=== PATIENT | female | born 1950 | race Caucasian/White ===

== ENCOUNTER → 2016-08-12 | Outpatient (CLI) | payer OTHER ==
[~2016-08-12] MED LIST: ALBU1AER9 INH; CALCTAB7 PO; CHOL100010 PO; COEN200C4 PO; GLUCTAB7 PO; LOSA100T65 PO; LPT10 PO; METF750T PO; MULT-513 PO; TNR25 PO
--- NOTE | 2016-08-12 14:36 | MAMMOGRAPHY REPORT ---
BILATERAL DIGITAL SCREENING MAMMOGRAM WITH CAD: 08/12/2016 CLINICAL HISTORY: Routine screening. Baseline exam. Routine screening. Patient has no complaints. TECHNIQUE: Bilateral CC, MLO and left XCCL views were obtained. Current study was also evaluated w ith a Computer Aided Detection (CAD) system. COMPARISON: Comparison is made to exams dated: 08/11/2015 mammogram, 08/05/2014 mammogram, 07/21/2013 m ammogram, and 07/07/2013 mammogram - [facility]. BREAST COMPOSITION: The tissue of both breasts is heterogeneously dense, which may obscure small ma sses. FINDINGS: There are scattered stable round benign-appearing microcalcifications in the breasts, and a stable intramammary lymph node in the right upper outer quadrant. No suspicious mass, architectura l distortion or cluster of suspicious microcalcifications is seen. IMPRESSION: ACR BI-RADS CATEGORY 1: NEGATIVE There is no mammographic evidence of malignancy. A 1 year screening mammogram is recommended. The p atient will receive written notification of the results. Approximately 10% of breast cancers are not detected with mammography. A negative mammographic repor t should not delay biopsy if a clinically suggestive mass is present. Gunjan Lehman M.D. ay/:08/12/2016 13:58:34 Dump Worker: Jami CROUCH(Pedrito)(Terrance)(BD), [facility] letter sent: Normal 1/2 BI-RADS Code: ACR BI-RADS Category 1: Negative
== END | disposition home or self-care (01) ==
LOC: C.MAMM 13:32
PROVIDERS: ATTEND Obstetrics & Gynecology
DX: Z12.31 Encounter for screening mammogram for malignant neoplasm of breast (principal)

== ENCOUNTER → 2017-08-13 | Outpatient (CLI) | payer OTHER ==
--- NOTE | 2017-08-13 15:55 | MAMMOGRAPHY REPORT ---
BILATERAL DIGITAL SCREENING MAMMOGRAM TOMOSYNTHESIS WITH CAD: 08/13/2017 CLINICAL HISTORY: Routine screening. Patient has no complaints. TECHNIQUE: Breast tomosynthesis in addition to standard 2D mammography was performed. Current study was also evaluated with a Computer Aided Detection (CAD) system. COMPARISON: Comparison is made to exams dated: 08/12/2016 mammogram, 08/11/2015 mammogram, 08/05/2014 m ammogram, 07/21/2013 mammogram, 07/07/2013 mammogram, and 07/01/2012 mammogram - [facility] nter. BREAST COMPOSITION: The tissue of both breasts is heterogeneously dense, which may obscure small mas ses. FINDINGS: There is a stable intramammary lymph node in the right upper outer quadrant. Scattered bryce ign round microcalcifications. No suspicious mass, architectural distortion or cluster of microcalci fications is seen. IMPRESSION: ACR BI-RADS CATEGORY 1: NEGATIVE There is no mammographic evidence of malignancy. A 1 year screening mammogram is recommended. The pa tient will receive written notification of the results. Approximately 10% of breast cancers are not detected with mammography. A negative mammographic report should not delay biopsy if a clinically suggestive mass is present. Gunjan Lehman M.D. ay/:08/13/2017 14:06:45 Grounds Foreman: Angelique CROUCH(Pedrito)(M), [facility] letter sent: Normal 1/2 BI-RADS Code: ACR BI-RADS Category 1: Negative
== END | disposition home or self-care (01) ==
LOC: C.MAMM 13:22
PROVIDERS: ATTEND Obstetrics & Gynecology
DX: Z12.31 Encounter for screening mammogram for malignant neoplasm of breast (principal)

== ENCOUNTER 2022-07-21 15:56 | Inpatient (IN) ==
[2022-07-21 16:42] LABS: Basophils # (auto) 0.04 K/uL (0-0.2); Basophils % (auto) 0.7 %; Eosinophils # (auto) 0.25 K/uL (0-0.50); Eosinophils % (auto) 4.3 %; Hematocrit (blood only) 41.5 % (37.0-47.0); Hemoglobin 15.3 g/dl (12.0-16.0); Immature Granulocytes # (auto) 0.01 K/uL (0.01-0.20); Immature Granulocytes % (auto) 0.2 %; Lymphocytes # (auto) 1.36 K/uL (1.2-3.4); Lymphocytes % (auto) 23.5 %; Mean Corpuscular Hemoglobin 31.7 pg (25.0-34.0); Mean Corpuscular Hgb Conc 36.9 g/dL (32.0-36.0); Mean Corpuscular Volume 85.9 fL (80.0-100.0); Mean Platelet Volume 11.1 fL (9.4-12.4); Monocytes # (auto) 0.44 K/uL (0.11-0.59); Monocytes % (auto) 7.6 %; Neutrophils # (auto) 3.69 K/uL (1.40-6.50); Neutrophils % (auto) 63.7 %; Platelet Count 188 K/uL (130-400); RDW Coefficient of Variation 13.3 % (11.5-14.5); RDW Standard Deviation 41.3 fL (36.4-46.3); Red Blood Count 4.83 M/uL (4.20-5.40); White Blood Count 5.79 K/ul (4.8-10.8)
[2022-07-21] MEDS ORDERED: SODIUM CHLORIDE 0.9% 1000ML 500 ML IV ONE (16:44)
[2022-07-21] MEDS ORDERED: MoRPHine SULFATE 4 MG/ML 1 ML CARP\\VIAL IV STA ×2 (16:44→19:36)
[2022-07-21] MEDS ORDERED: ONDANSETRON INJ 2 MG/ML 2 ML VIAL IV STA (16:44)
--- NOTE | 2022-07-21 16:44 | Emergency Department Note ---
History of Present Illness General Chief Complaint: Abdominal Pain Stated Complaint: ABDOMINAL PAIN, BACK PAIN Time Seen by Provider: 07/21/22 16:12 History of Present Illness Provider Complaint: abdominal pain Onset (ago): 1 day(s) Pain Consistency: intermittent Location: epigastric Radiation: back Severity: moderate Maximum Pain Intensity: 7 Current Pain Intensity: 7 Quality: + stabbing and + sharp Relieved By: + nothing Exacerbated By: + nothing Context: no foreign travel, no possible food poisoning, no sick contacts, no recent antibiotic use, no recent surgery/procedure or no history of similar episodes Associated Symptoms: no nausea, no vomiting, no fever and no chills Related Data Patient Confirmed : No Home Medications Medication Instructions Recorded Confirmed Type albuterol sulfate 90 mcg/actuation 2 inh inhalation Q6H PRN Shortness 07/21/22 07/21/22 History aerosol inhaler Of Breath aspirin 81 mg tablet,delayed 81 mg PO DAILY 07/21/22 07/21/22 History release cholecalciferol (vitamin D3) 50 50 mcg PO DAILY 07/21/22 07/21/22 History mcg (2,000 unit) capsule (Vitamin D3) coQ10 (ubiquinol) 200 mg capsule 200 mg PO DAILY 07/21/22 07/21/22 History glucosamine sulf dipot 1 cap PO DAILY 07/21/22 07/21/22 History chlr,msm,chond 550 mg-C 30 mg-greta 1 mg capsule (Glucosamine Chondroitin) ibuprofen 200 mg tablet (Advil) 200 mg PO BID 07/21/22 07/21/22 History indapamide 1.25 mg tablet 1.25 mg PO DAILY 07/21/22 07/21/22 History levocetirizine 5 mg tablet (Xyzal) 5 mg PO PM 07/21/22 07/21/22 History losartan 100 mg tablet 100 mg PO HS 07/21/22 07/21/22 History metformin 750 mg tablet,extended 1,500 mg PO DAILY 07/21/22 07/21/22 History release 24 hr pravastatin 20 mg tablet 20 mg PO DAILY 07/21/22 07/21/22 History turmeric root extract 500 mg tablet 500 mg PO DAILY 07/21/22 07/21/22 History Allergies Allergy/AdvReac Type Severity Reaction Status Date / Time erythromycin base Allergy Unknown Unknown Verified 07/21/22 19:15 latex Allergy Unknown CONTACT Verified 07/21/22 19:15 DERMATITIS merthiolate Allergy itchy Uncoded 07/21/22 19:21 Seasonal Allergy sneeze, Uncoded 07/21/22 19:19 itchy eyes, congestion Past Med/Surg History Medical History DM type 2 (diabetes mellitus, type 2) Dyslipidemia HTN (hypertension) BAILEE on CPAP Trochanteric bursitis of left hip Surgical History H/O colectomy History of hysterectomy Family History Mother Hypertension Social History Smoking Status: Never smoker Second Hand Exposure: No; Do You Dip or Chew Tobacco: No; Tobacco Cessation Education Requested by Patient: No Hx Alcohol Use: No Hx Substance Use: No Preferred Language: Telugu Communication Ability: Effective Field Service Rep Required: No Beliefs That Will Affect Care: None Current Living Situation: Alone Other Information That Helps Us Care for You: No Feels Safe at Home: Yes Safety Concerns: Feels Safe At This Time Assistive Devices: CPAP and Glasses Physical Exam Vital Signs: Vital Signs - 24 hr 07/21/22 16:01 07/21/22 16:23 07/21/22 16:23 Temperature 36.6 C 36.7 C Temperature Source Temporal Artery Sc an Oral Pulse Rate 79 77 Pulse Rate [Right Finger] 76 Pulse Rhythm [Righ t Finger] Regular Respiratory Rate 18 18 18 Respiratory Effort / Characteristics Non-Labored Sponta neous Non-Labored Sponta neous Respiratory Depth Normal Normal Respiratory Patter n Regular Regular Blood Pressure 200/98 H Blood Pressure [Ri ght Arm] 137/86 Blood Pressure Lawanda n 132 Blood Pressure Lawanda n [Right Arm] 103 Blood Pressure Pos ition Sitting Blood Pressure Pos ition [Right Arm] Lying Pulse Oximetry 99 97 97 Oxygen Delivery Me thod Room Air Room Air Room Air Sepsis Recent Feve r Within 48 Hours No Sepsis New/Unexpla ined Change in Men gilberto Status N/A Sepsis Action Take n by Nursing No Action Required 07/21/22 18:05 Temperature Temperature Source Pulse Rate Pulse Rate [Right Finger] 90 Pulse Rhythm [Righ t Finger] Regular Respiratory Rate 18 Respiratory Effort / Characteristics Non-Labored Sponta neous Respiratory Depth Normal Respiratory Patter n Regular Blood Pressure Blood Pressure [Ri ght Arm] 185/88 H Blood Pressure Lawanda n Blood Pressure Lawanda n [Right Arm] 120 Blood Pressure Pos ition Blood Pressure Pos ition [Right Arm] Sitting Pulse Oximetry 97 Oxygen Delivery Me thod Room Air Sepsis Recent Feve r Within 48 Hours Sepsis New/Unexpla ined Change in Men gilberto Status Sepsis Action Take n by Nursing Physical Exam: Physical Exam HENT: Exam performed. - Head: Normocephalic and atraumatic. EYES: Conjunctivae and EOM are normal. Right eye exhibits no discharge. Left eye exhibits no discharge. No scleral icterus. NECK: Normal range of motion. Neck supple. No JVD present. CV: Normal rate, regular rhythm, normal heart sounds and intact distal pulses. There is no peripheral edema. Palpable radial pulses bue. PULM/CHEST: Effort normal and breath sounds normal. No respiratory distress. No stridor. He has no wheezes. He has no rales. - Chest Wall: He exhibits no tenderness. ABD: The abdomen is soft. Bowel sounds are normal. He has no distension. There is tenderness to palpation of the epigastric area. There is no rebound, no guarding, no Juan's sign and no tenderness at McBurney's point. Rovsig n egative. MUSC/SKEL: Normal range of motion. There is no peripheral edema, tenderness or deformity. LYMPH: No cervical adenopathy. NEURO: Motor and sensation grossly intact. SKIN: Skin is warm and dry. He is not diaphoretic. PSYCH: He has a normal mood and affect. Behavior is normal. Judgment and thought content normal. Course Course 1612: The patient was evaluated in room B4. A complete history and physical exam was performed Cardiac monitoring: An order was placed for continuous cardiac monitoring. The monitor shows a rate of 90 with sinus rhythm interpreted by me 1820: Vital signs stable. Labs show a total bilirubin 1.9 direct bilirubin 0.9 AST 190 ALT 231 alkaline phosphatase [address] shows pancreatitis no acute cholecystitis. Patient will be admitted to the [facility] Kalie perez states to admit to Dr. Lynne. Administered Medications Potassium Chloride (K Yuniel / Wtr) 10 meq in 100 mls @ 100 mls/hr IV Q1H [facility] Stop: 07/21/22 23:14 Last Admin: 07/21/22 21:35 Dose: 100 mls/hr Documented By: Lactated Ringer's (Lr) 1,000 mls @ 150 mls/hr IV .Q6H40M [facility] Stop: 08/20/22 21:14 Last Admin: 07/21/22 21:34 Dose: 150 mls/hr Documented By: Discontinued Medications Famotidine (Famotidine 20mg/5ml Iv Push) Confirm Administered Dose 20 mg IV .STK-MED ONE Stop: 07/21/22 18:59 Last Admin: 07/21/22 19:00 Dose: 20 mg Documented By: LEANN Sodium Chloride (Nss 1000ml) 500 mls @ 999 mls/hr IV .Q31M ONE Stop: 07/21/22 17:14 Last Infusion: 07/21/22 17:26 Dose: 0 mls/hr Documented By: Admin: 07/21/22 16:54 Dose: 999 mls/hr Documented By: PACO Sodium Chloride (Nss 1000ml) 1,000 mls @ 125 mls/hr IV .Q8H [facility] Stop: 08/20/22 17:59 Last Admin: 07/21/22 17:57 Dose: 125 mls/hr Documented By: PACO Famotidine 20 mg/ Syringe 5 mls @ 2.5 mls/min IV NOW ONE Stop: 07/21/22 18:51 Last Admin: 07/21/22 19:00 Dose: Not Given Documented By: LEANN Ioversol (Optiray 350 100ml) 91 ml IV ONCE ONE Stop: 07/21/22 17:13 Last Admin: 07/21/22 17:14 Dose: 91 ml Documented By: ISAIAS Morphine Sulfate (Morphine Sulfate 4 Mg/Ml 1 Ml Carp\Vial) 4 mg IV NOW STA Stop: 07/21/22 16:45 Last Admin: 07/21/22 17:54 Dose: Not Given Documented By: PACO Morphine Sulfate (Morphine Sulfate 4 Mg/Ml 1 Ml Carp\Vial) 3 mg IV NOW STA Stop: 07/21/22 19:37 Last Admin: 07/21/22 20:22 Dose: 3 mg Documented By: PACO Ondansetron HCl (Ondansetron Inj 2 Mg/Ml 2 Ml Vial) 4 mg IV NOW STA Stop: 07/21/22 16:45 Last Admin: 07/21/22 16:49 Dose: 4 mg Documented By: PACO Medical Decision Making Laboratory Data Attestation: I reviewed the patient's lab results. 07/21/22 16:15 07/21/22 16:15 Lab Results 07/21/22 07/21/22 07/21/22 Range/Units 16:15 16:15 16:15 WBC 5.79 (4.8-10.8) K/ul RBC 4.83 (4.20-5.40) M/uL Hgb 15.3 (12.0-16.0) g/dl Hct 41.5 (37.0-47.0) % MCV 85.9 (80.0-100.0) fL MCH 31.7 (25.0-34.0) pg MCHC 36.9 H (32.0-36.0) g/dL RDW Std Deviation 41.3 (36.4-46.3) fL RDW Coeff of Francine 13.3 (11.5-14.5) % Plt Count 188 (130-400) K/uL MPV 11.1 (9.4-12.4) fL Immature Gran % (Auto) 0.2 % Neut % (Auto) 63.7 % Lymph % (Auto) 23.5 % Independence % (Auto) 7.6 % Eos % (Auto) 4.3 % Baso % (Auto) 0.7 % Neut # (Auto) 3.69 (1.40-6.50) K/uL Lymph # (Auto) 1.36 (1.2-3.4) K/uL Independence # (Auto) 0.44 (0.11-0.59) K/uL Eos # (Auto) 0.25 (0-0.50) K/uL Baso # (Auto) 0.04 (0-0.2) K/uL Immature Gran # (Auto) 0.01 (0.01-0.20) K/uL Sodium 138 (136-145) mmol/L Potassium 3.3 L (3.5-5.1) mmol/L Chloride 99 (98-107) mmol/L Carbon Dioxide 32 (21-32) mmol/L Anion Gap 7 (3-11) BUN 13 (6-23) mg/dl Creatinine 0.73 (0.6-1.2) mg/dl Est Cr Clr Drug Dosing 9.9 ml/min Est GFR ( Amer) 94.7 ml/min Est GFR (Non-Af Amer) 81.7 ml/min BUN/Creatinine Ratio 17.8 (10-20) Glucose 182 H (70-99(Fasting)) mg/dl Calcium 10.7 H (8.5-10.1) mg/dl Magnesium 1.8 (1.7-2.4) mg/dl Total Bilirubin 1.9 H (0.2-1.0) mg/dl Direct Bilirubin 0.9 H (0-0.2) mg/dl AST 190 H (13-39) U/L ALT 271 H (7-52) U/L Alkaline Phosphatase 118 H (34-104) U/L Total Protein 7.6 (6.0-8.3) gm/dl Albumin 4.6 (3.4-5.0) gm/dl Lipase 2184 H (11-82) U/L Urine Color Dark Yellow Urine Appearance Turbid A (Clear) Urine pH 7.5 (4.5-7.5) Ur Specific Metter 1.014 (1.000-1.030) Urine Protein Negative (Negative) Urine Glucose (UA) Negative (Negative) Urine Ketones Negative (Negative) Urine Blood Negative (Negative) Urine Nitrite Positive A (Negative) Urine Bilirubin Negative (Negative) Urine Urobilinogen Negative (Negative) Ur Leukocyte Esterase Negative (Negative) Urine WBC (Auto) 1-5 (0-5) /hpf Urine RBC (Auto) 0-4 (0-4) /hpf U Hyaline Cast (Auto) 1-5 (0-5) /lpf U Epithel Cells (Auto) 5-10 H (0-5) /lpf Urine Bacteria (Auto) 4+ H (Negative) SARS-CoV-2, RNA, NAAT (NEGATIVE) 07/21/22 Range/Units 18:07 WBC (4.8-10.8) K/ul RBC (4.20-5.40) M/uL Hgb (12.0-16.0) g/dl Hct (37.0-47.0) % MCV (80.0-100.0) fL MCH (25.0-34.0) pg MCHC (32.0-36.0) g/dL RDW Std Deviation (36.4-46.3) fL RDW Coeff of Francine (11.5-14.5) % Plt Count (130-400) K/uL MPV (9.4-12.4) fL Immature Gran % (Auto) % Neut % (Auto) % Lymph % (Auto) % Independence % (Auto) % Eos % (Auto) % Baso % (Auto) % Neut # (Auto) (1.40-6.50) K/uL Lymph # (Auto) (1.2-3.4) K/uL Independence # (Auto) (0.11-0.59) K/uL Eos # (Auto) (0-0.50) K/uL Baso # (Auto) (0-0.2) K/uL Immature Gran # (Auto) (0.01-0.20) K/uL Sodium (136-145) mmol/L Potassium (3.5-5.1) mmol/L Chloride (98-107) mmol/L Carbon Dioxide (21-32) mmol/L Anion Gap (3-11) BUN (6-23) mg/dl Creatinine (0.6-1.2) mg/dl Est Cr Clr Drug Dosing ml/min Est GFR ( Amer) ml/min Est GFR (Non-Af Amer) ml/min BUN/Creatinine Ratio (10-20) Glucose (70-99(Fasting)) mg/dl Calcium (8.5-10.1) mg/dl Magnesium (1.7-2.4) mg/dl Total Bilirubin (0.2-1.0) mg/dl Direct Bilirubin (0-0.2) mg/dl AST (13-39) U/L ALT (7-52) U/L Alkaline Phosphatase (34-104) U/L Total Protein (6.0-8.3) gm/dl Albumin (3.4-5.0) gm/dl Lipase (11-82) U/L Urine Color Urine Appearance (Clear) Urine pH (4.5-7.5) Ur Specific Metter (1.000-1.030) Urine Protein (Negative) Urine Glucose (UA) (Negative) Urine Ketones (Negative) Urine Blood (Negative) Urine Nitrite (Negative) Urine Bilirubin (Negative) Urine Urobilinogen (Negative) Ur Leukocyte Esterase (Negative) Urine WBC (Auto) (0-5) /hpf Urine RBC (Auto) (0-4) /hpf U Hyaline Cast (Auto) (0-5) /lpf U Epithel Cells (Auto) (0-5) /lpf Urine Bacteria (Auto) (Negative) SARS-CoV-2, RNA, NAAT NEGATIVE (NEGATIVE) Imaging Data Radiologist's Impression: Abdomen/Pelvis CT 07/21/22 16:19 CT SCAN OF THE ABDOMEN AND PELVIS WITH IV CONTRAST CLINICAL HISTORY: Epigastric abdominal pain. COMPARISON STUDY: No priors. TECHNIQUE: Following the IV administration of 91 cc of Optiray 350, CT scan of the abdomen and pelvis is performed from the lung bases to the proximal femora. Images are reviewed in the axial, sagittal, and coronal planes. IV contrast was administered without complication. A dose lowering technique was utilized adhering to the principles of ALARA. CT DOSE: 690.39 mGy.cm FINDINGS: Lung bases: The heart is normal in size and without pericardial effusion. The lung bases are clear noting bibasilar scarring/atelectasis. A small fat- containing Bochdalek hernia is seen on the right. Liver: The contrast-enhanced liver is top normal in size and demonstrates diffusely diminished attenuation indicating steatosis. There is mild intrahepatic biliary ductal dilatation. The hepatic veins and portal veins are patent. Gallbladder: There are calcified gallstones without CT evidence of acute cholecystitis. Adenomyomatosis is seen in the fundal region. Spleen: Normal in size and attenuation. Pancreas: The pancreas is mildly enlarged and edematous, with peripancreatic inflammation and fluid. The appearance is consistent with acute pancreatitis. The gland enhances throughout. The duct is normal in caliber. No organized peripancreatic fluid collection is identified. The splenic vein is patent. Adrenal glands: Unremarkable. Kidneys: The contrast enhanced kidneys are normal in size and without hydronephrosis. The kidneys enhance symmetrically. A 3.4 cm cyst is noted in the left lower pole. Abdominal vasculature: The abdominal aorta is normal in course and caliber noting moderate to advanced atherosclerotic calcification. Bowel: There is postoperative change from sigmoid colon resection and colocolonic anastomosis. No bowel obstruction is seen. There is tsda-yh-zazneoug diverticulosis of the remaining colon without CT evidence of acute diverticul itis. The appendix is well-visualized and normal. Peritoneum: There is no intraperitoneal free air or abdominal ascites. Lymphadenopathy: None. Pelvic viscera: The bladder is normal as visualized. The uterus is surgically absent. No adnexal lesion is seen. Skeletal structures: The skeletal structures are osteopenic. There is mild to moderate lumbosacral spondylosis. Sclerotic change is noted in the sacroiliac joints and pubic symphysis. No lytic or blastic lesions are seen. IMPRESSION: 1. Acute pancreatitis. 2. The gland enhances throughout and no organized peripancreatic fluid collection is seen. 3. Cholelithiasis without CT evidence of acute cholecystitis. 4. Hepatic steatosis. 5. There is mild to moderate diverticulosis of the remaining colon without CT evidence of acute diverticulitis. 6. Additional findings as above. ACT 112: Negative or not required by law. Electronically signed by: Sanjay Tong M.D. 07/21/2022 5:42 PM [facility] Narrative 1612: The patient was evaluated in room B4. A complete history and physical exam was performed Cardiac monitoring: An order was placed for continuous cardiac monitoring. The monitor shows a rate of 90 with sinus rhythm interpreted by nd 1820: Vital signs stable. Labs show a total bilirubin 1.9 direct bilirubin 0.9 AST 190 ALT 231 alkaline phosphatase [address] shows pancreatitis no acute cholecystitis. Patient will be admitted to the [facility] to admit to Dr. Lynne. Impression & Plan Pancreatitis, Cholelithiasis, Elevated LFTs Discharge Plan Visit Data Chief Complaint: Abdominal Pain Stated Complaint: ABDOMINAL PAIN, BACK PAIN ED Provider: Sylvain Da Silva Discharge Problem: Pancreatitis, Cholelithiasis, Elevated LFTs Patient Disposition: Admitted As Inpatient Discharge Instructions Interventions: ED Discharge Assessment Last Done: 07/21/22 21:04
[2022-07-21 16:45] LABS: Appearance Urine Turbid (Clear); Bacteria Urine Automated 4+ (Negative); Bilirubin Urine Negative (Negative); Blood Urine Negative (Negative); Color Urine Dark Yellow; Glucose Urine UA Negative (Negative); Ketones Urine Negative (Negative); Leukocyte Esterase Urine Negative (Negative); Nitrite Urine Positive (Negative); Protein Urine Negative (Negative); RBC Urine Automated 0-4 /hpf (0-4); Specific Gravity Urine 1.014 (1.000-1.030); Urobilinogen Urine Negative (Negative); pH Urine 7.5 (4.5-7.5)
[2022-07-21 16:58] LABS: BUN Creatinine Ratio 17.8 (10-20); Calcium 10.7 mg/dl (8.5-10.1); Creatinine Clr Calc Pharmacy 9.9 ml/min; Est GFR (African American) 94.7 ml/min; Est GFR (Non-African American) 81.7 ml/min; Potassium 3.3 mmol/L (3.5-5.1)
[2022-07-21] MEDS ORDERED: OPTIRAY 350 100ml IV ONE (17:12)
[2022-07-21 17:21] LABS: Albumin Level 4.6 gm/dl (3.4-5.0); Bilirubin Direct 0.9 mg/dl (0-0.2); Bilirubin,Total 1.9 mg/dl (0.2-1.0); Total Protein 7.6 gm/dl (6.0-8.3)
--- NOTE | 2022-07-21 17:44 | CT Scan Report ---
CT SCAN OF THE ABDOMEN AND PELVIS WITH IV CONTRAST CLINICAL HISTORY: Epigastric abdominal pain. COMPARISON STUDY: No priors. TECHNIQUE: Following the IV administration of 91 cc of Optiray 350, CT scan of the abdomen and pelvi s is performed from the lung bases to the proximal femora. Images are reviewed in the axial, sagittal , and coronal planes. IV contrast was administered without complication. A dose lowering technique wa s utilized adhering to the principles of ALARA. CT DOSE: 690.39 mGy.cm FINDINGS: Lung bases: The heart is normal in size and without pericardial effusion. The lung bases are clear no ting bibasilar scarring/atelectasis. A small fat-containing Bochdalek hernia is seen on the right. Liver: The contrast-enhanced liver is top normal in size and demonstrates diffusely diminished attenu ation indicating steatosis. There is mild intrahepatic biliary ductal dilatation. The hepatic veins a nd portal veins are patent. Gallbladder: There are calcified gallstones without CT evidence of acute cholecystitis. Adenomyomatos is is seen in the fundal region. Spleen: Normal in size and attenuation. Pancreas: The pancreas is mildly enlarged and edematous, with peripancreatic inflammation and fluid. The appearance is consistent with acute pancreatitis. The gland enhances throughout. The duct is norm al in caliber. No organized peripancreatic fluid collection is identified. The splenic vein is patent . Adrenal glands: Unremarkable. Kidneys: The contrast enhanced kidneys are normal in size and without hydronephrosis. The kidneys enh ance symmetrically. A 3.4 cm cyst is noted in the left lower pole. Abdominal vasculature: The abdominal aorta is normal in course and caliber noting moderate to advance d atherosclerotic calcification. Bowel: There is postoperative change from sigmoid colon resection and colocolonic anastomosis. No bow el obstruction is seen. There is yata-ml-aorsshyr diverticulosis of the remaining colon without CT ev idence of acute diverticulitis. The appendix is well-visualized and normal. Peritoneum: There is no intraperitoneal free air or abdominal ascites. Lymphadenopathy: None. Pelvic viscera: The bladder is normal as visualized. The uterus is surgically absent. No adnexal lesi on is seen. Skeletal structures: The skeletal structures are osteopenic. There is mild to moderate lumbosacral sp ondylosis. Sclerotic change is noted in the sacroiliac joints and pubic symphysis. No lytic or blasti c lesions are seen. IMPRESSION: 1. Acute pancreatitis. 2. The gland enhances throughout and no organized peripancreatic fluid collection is seen. 3. Cholelithiasis without CT evidence of acute cholecystitis. 4. Hepatic steatosis. 5. There is mild to moderate diverticulosis of the remaining colon without CT evidence of acute diver ticulitis. 6. Additional findings as above. ACT 112: Negative or not required by law. Electronically signed by: Sanjay Tong M.D. 07/21/2022 5:42 PM
[2022-07-21] MEDS ORDERED: SODIUM CHLORIDE 0.9% 1000ML 1,000 ML IV SCH (18:00)
[2022-07-21] MEDS ORDERED: FAMOTIDINE 20 MG in SYRINGE 3 ML IV ONE (18:50)
[2022-07-21] MEDS ORDERED: FAMOTIDINE 20MG/5ML IV PUSH IV ONE (18:58)
--- NOTE | 2022-07-21 19:52 | History & Physical Report ---
Date of Service July 21, 2022 Assessment & Plan (1) Pancreatitis: (2) Cholelithiasis: (3) Elevated LFTs: Plan: [facility] Patient presenting from home with reports of epigastric discomfort In the ED, found to have transaminitis with elevated LFTs. CT ABD/pelvis showing signs of acute pancreatitis and cholelithiasis without acute cholecystitis. Patient is afebrile, no leukocytosis Given cholelithiasis on CT ABD/pelvis, suspicious for gallstone pancreatitis MRCP Check triglycerides with a.m. labs GI and general surgery consults N.p.o., IVF, pain and nausea control (4) HTN (hypertension): Plan: BP elevated, likely secondary to pain Continue home losartan, hold indapamide while receiving IVF PRN hydralazine (5) DM type 2 (diabetes mellitus, type 2): Plan: Hgb A1c 5.6 03/2022 Hold metformin and utilize NovoLog per protocol while hospitalized (6) BAILEE on CPAP: Plan: CPAP as per home settings DVT PROPHYLAXIS SCDs (7) Hypokalemia: History of Present Illness Chief Complaint: Epigastric pain Primary Care Provider: Robert Woodard MD 72-year-old female with PMH DM type II, dyslipidemia, BAILEE on CPAP, HTN, history of diverticulitis s/p colectomy, and other problems listed below who presents to the ED for evaluation of epigastric discomfort. Patient reports increased feelings of indigestion over the past month and a half. Symptoms do not seem to be made worse with particular foods or food in general. Patient has been taking Tums on a daily basis. Today, she reports she developed discomfort into her back which prompted ED evaluation. Patient reports some nausea in the ED today however has had no other nausea or vomiting. Denies diarrhea or change in bowel habits. No fevers or chills. Denies urinary symptoms. In the ED, patient is found to have transaminitis with elevated lipase. CT ABD/pelvis shows acute pancreatitis, cholelithiasis without CT evidence of acute cholecystitis. Patient was given IV Zofran, IVF. Allergies Allergy/AdvReac Type Severity Reaction Status Date / Time erythromycin base Allergy Unknown Unknown Verified 07/21/22 19:15 latex Allergy Unknown CONTACT Verified 07/21/22 19:15 DERMATITIS merthiolate Allergy itchy Uncoded 07/21/22 19:21 Seasonal Allergy sneeze, Uncoded 07/21/22 19:19 itchy eyes, congestion Home Medications Medication Instructions Recorded Confirmed Type albuterol sulfate 90 mcg/actuation 2 inh inhalation Q6H PRN Shortness 07/21/22 07/21/22 History aerosol inhaler Of Breath aspirin 81 mg tablet,delayed 81 mg PO DAILY 07/21/22 07/21/22 History release cholecalciferol (vitamin D3) 50 50 mcg PO DAILY 07/21/22 07/21/22 History mcg (2,000 unit) capsule (Vitamin D3) coQ10 (ubiquinol) 200 mg capsule 200 mg PO DAILY 07/21/22 07/21/22 History glucosamine sulf dipot 1 cap PO DAILY 07/21/22 07/21/22 History chlr,msm,chond 550 mg-C 30 mg-greta 1 mg capsule (Glucosamine Chondroitin) ibuprofen 200 mg tablet (Advil) 200 mg PO BID 07/21/22 07/21/22 History indapamide 1.25 mg tablet 1.25 mg PO DAILY 07/21/22 07/21/22 History levocetirizine 5 mg tablet (Xyzal) 5 mg PO PM 07/21/22 07/21/22 History losartan 100 mg tablet 100 mg PO HS 07/21/22 07/21/22 History metformin 750 mg tablet,extended 1,500 mg PO DAILY 07/21/22 07/21/22 History release 24 hr pravastatin 20 mg tablet 20 mg PO DAILY 07/21/22 07/21/22 History turmeric root extract 500 mg tablet 500 mg PO DAILY 07/21/22 07/21/22 History Past Med/Surg History Medical History DM type 2 (diabetes mellitus, type 2) Dyslipidemia HTN (hypertension) BAILEE on CPAP Trochanteric bursitis of left hip Surgical History H/O colectomy History of hysterectomy Family History Mother Hypertension Social History (Updated 07/21/22 @ 19:54 by SHOLA Luis) Smoking Status: Never smoker Hx Alcohol Use: No Preferred Language: Indonesian Feels Safe at Home: Yes Review of Systems Review of Systems: ROS per HPI, all other systems reviewed and negative Physical Exam Constitutional: WD/WN, vitals as above Eyes: PERRL, conjunctivae normal, anicteric sclerae ENMT: external ear and nose normal, oropharynx normal Respiratory: normal respiratory effort, lungs clear to auscultation Cardiovascular: Rate/Rhythm: regular rate and regular rhythm Vessels: normal peripheral pulses Extremities: no edema Gastrointestinal (Abdomen): Inspection/Auscultation: normal bowel sounds; abdomen not distended Percussion/Palpation: + abdomen tender (Epigastric) and abdomen soft; no hepatosplenomegaly Musculoskeletal: no cyanosis or clubbing, extremities motor strength 5/5 Skin: no rashes, warm and dry Neurologic: PERRL, EOMI, accommodation nl, no face palsy, no dysarthria Psychiatric: A+Ox3, euthymic affect Results & Data Results & Data ([facility]) Vital Signs (Past 12 Hours) Vital Signs Temp Pulse Pulse Resp BP BP Pulse Ox 07/21/22 18:05 90 18 185/88 H 97 07/21/22 16:23 77 18 97 07/21/22 16:23 36.7 C 76 18 137/86 97 07/21/22 16:01 36.6 C 79 18 200/98 H 99 O2 Del Method 07/21/22 18:05 Room Air 07/21/22 16:23 Room Air 07/21/22 16:23 Room Air 07/21/22 16:01 Room Air Laboratory Results Short CBC 07/21/22 Range/Units 16:15 WBC 5.79 (4.8-10.8) K/ul Hgb 15.3 (12.0-16.0) g/dl Hct 41.5 (37.0-47.0) % Plt Count 188 (130-400) K/uL BMP 07/21/22 16:15 Sodium 138 Potassium 3.3 L Chloride 99 Carbon Dioxide 32 BUN 13 Creatinine 0.73 Glucose 182 H Calcium 10.7 H Liver Function 07/21/22 Range/Units 16:15 Total Bilirubin 1.9 H (0.2-1.0) mg/dl Direct Bilirubin 0.9 H (0-0.2) mg/dl AST 190 H (13-39) U/L ALT 271 H (7-52) U/L Alkaline Phosphatase 118 H (34-104) U/L Albumin 4.6 (3.4-5.0) gm/dl Urine 07/21/22 Range/Units 16:15 Urine Color Dark Yellow Urine Appearance Turbid A (Clear) Urine pH 7.5 (4.5-7.5) Ur Specific [place] 1.014 (1.000-1.030) Urine Protein Negative (Negative) Urine Glucose (UA) Negative (Negative) Diagnostic Findings Abdomen/Pelvis CT 07/21/22 16:19 CT SCAN OF THE ABDOMEN AND PELVIS WITH IV CONTRAST CLINICAL HISTORY: Epigastric abdominal pain. COMPARISON STUDY: No priors. TECHNIQUE: Following the IV administration of 91 cc of Optiray 350, CT scan of the abdomen and pelvis is performed from the lung bases to the proximal femora. Images are reviewed in the axial, sagittal, and coronal planes. IV contrast was administered without complication. A dose lowering technique was utilized adhering to the principles of ALARA. CT DOSE: 690.39 mGy.cm FINDINGS: Lung bases: The heart is normal in size and without pericardial effusion. The lung bases are clear noting bibasilar scarring/atelectasis. A small fat- containing Bochdalek hernia is seen on the right. Liver: The contrast-enhanced liver is top normal in size and demonstrates diffusely diminished attenuation indicating steatosis. There is mild intrahepatic biliary ductal dilatation. The hepatic veins and portal veins are patent. Gallbladder: There are calcified gallstones without CT evidence of acute cholecystitis. Adenomyomatosis is seen in the fundal region. Spleen: Normal in size and attenuation. Pancreas: The pancreas is mildly enlarged and edematous, with peripancreatic inflammation and fluid. The appearance is consistent with acute pancreatitis. The gland enhances throughout. The duct is normal in caliber. No organized peripancreatic fluid collection is identified. The splenic vein is patent. Adrenal glands: Unremarkable. Kidneys: The contrast enhanced kidneys are normal in size and without hydronephrosis. The kidneys enhance symmetrically. A 3.4 cm cyst is noted in the left lower pole. Abdominal vasculature: The abdominal aorta is normal in course and caliber noting moderate to advanced atherosclerotic calcification. Bowel: There is postoperative change from sigmoid colon resection and coloco lonic anastomosis. No bowel obstruction is seen. There is cytn-qm-uynlowux diverticulosis of the remaining colon without CT evidence of acute diverticulitis. The appendix is well-visualized and normal. Peritoneum: There is no intraperitoneal free air or abdominal ascites. Lymphadenopathy: None. Pelvic viscera: The bladder is normal as visualized. The uterus is surgically absent. No adnexal lesion is seen. Skeletal structures: The skeletal structures are osteopenic. There is mild to moderate lumbosacral spondylosis. Sclerotic change is noted in the sacroiliac joints and pubic symphysis. No lytic or blastic lesions are seen. IMPRESSION: 1. Acute pancreatitis. 2. The gland enhances throughout and no organized peripancreatic fluid collection is seen. 3. Cholelithiasis without CT evidence of acute cholecystitis. 4. Hepatic steatosis. 5. There is mild to moderate diverticulosis of the remaining colon without CT evidence of acute diverticulitis. 6. Additional findings as above. ACT 112: Negative or not required by law. Electronically signed by: Sanjay Tong M.D. 07/21/2022 5:42 PM Code Status & VTE Plan VTE Prophylaxis Plan VTE Prophylaxis will be ordered: Yes Supervising Physician Co-Signing Physician Notes I have seen and examined the patient and have discussed the case with the provider above. I agree with the assessment and plan as stated. 72 yo F with a 1-2 month history of what sounds like biliary colic +/- heartburn in the setting of heavy NSAID use. She states that her abdominal discomfort has been present and improved with TUMS/Pepcid. Today she was prompted to come in because the pain now went to her back. She has been found to have acute pancreatitis and this appears to be 2/2 choledocholithiasis given the elevated bilirubin and LFTs and the evidence of cholelithiasis on the abd/pelvic CT scan. On exam she is sitting up on the side of the bed and in NAD. CV exam reveals regular rate and rhythm with S1/2 heard and no murmur. She is euvolemic and there is no per ipheral edema present. Abdominal exam reveals significant RUQ/epigastric pain to palpation. Abdomen is soft and not distended. Skin is warm and dry. She is hypertensive to 185/88. Labs reviewed and there is mild hypokalemia to 3.3, normal CBC without leukocytosis and elevated bilirubin and LFTs. Lipase elevated. CT a/p confirms acute pancreatitis, hepatic steatosis and cholelithiasis. Agree with plan to treat acute pancreatitis likely from biliary stone as outlined above including bowel rest, IVF, MRCP and GI and general surgery consult. DO Maged (1) Pancreatitis Chronicity: acute (2) Cholelithiasis Cholelithiasis location: gallbladder Cholecystitis presence: without cholecystitis
[2022-07-21 19:55] LABS: Magnesium 1.8 mg/dl (1.7-2.4)
[2022-07-21] MEDS ORDERED: GLUCOSE 40% GEL 15 GM TUBE PO PRN (21:15)
[2022-07-21] MEDS ORDERED: GLUCAGON FOR INJ 1 MG VIAL SQ PRN (21:15)
[2022-07-21] MEDS ORDERED: ACETAMINOPHEN 325 MG TAB PO PRN (21:15)
[2022-07-21] MEDS ORDERED: GLUCOSE 10 TAB/TUBE PO PRN (21:15)
[2022-07-21] MEDS ORDERED: DEXTROSE 50% 50 ML SYRINGE IV PRN (21:15)
[2022-07-21] MEDS ORDERED: CARBOHYDRATES FOR HYPOGLYCEMIA PO PRN (21:15)
[2022-07-21] MEDS ORDERED: INSULIN ASPART PER UNIT SC SCH (21:15)
[2022-07-21] MEDS ORDERED: hydrALAZINE HCL 20 MG/ML VIAL IV PRN (21:15)
[2022-07-21] MEDS ORDERED: Nursing to Pharmacy Communication SCH (21:30)
[2022-07-21] MEDS: LACTATED RINGER'S 1,000 ML IV SCH (21:34)
[2022-07-21] MEDS: POTASSIUM CHLORIDE / WTR 10 MEQ/100 ML PLCT IV SCH ×2 (21:35→22:50)
--- NOTE | 2022-07-21 21:43 | Surgery Consultation ---
Date of Consultation July 21, 2022 Assessment & Plan (1) Pancreatitis: Patient has been admitted on the hospitalist service. I discussed the etiology of patient's symptoms noting that the patient's cholelithiasis is likely the cause of her pancreatitis. We recommend proceeding as follows: Provide analgesics Provide antiemetics Hydrate aggressively with IV fluids Follow serial labs Implement n.p.o. status Agree with GI consultation for possible choledocholithiasis. The patient did have an MRCP with results pending at this time. I discussed with the patient in detail the etiology of her problem. I outlined with her that she likely has pancreatitis from gallstones. I discussed with her that prior to entertaining any surgical intervention her pancreatitis will need to be resolved with the treatment plan as outlined above. I then discussed with her that if she is noted to have choledocholithiasis gastroenterology will likely need to perform an ERCP to resolve this problem and then consideration will be given to performing cholecystectomy to prevent recurrence of gallstone pancreatitis. We will continue to follow along with additional recommendations based on future labs, MRCP results, gastroenterology recommendations, and her clinical course as it unfolds. Supervising Physician Co-Signing Physician Notes I personally saw and evaluated the patient with Ivan Benavidez PA-C and agree with the assessment and plan. 72-year-old female with gallstone pancreatitis CT images and results were personally viewed by myself, shows have a mild acute pancreatitis with cholelithiasis seen in the gallbladder She has elevated LFTs She being admitted to the medical service with GI consult and MRCP is pending We will tentatively plan a laparoscopic cholecystectomy once her common duct and pancreatitis is cleared We will follow History of Present Illness Reason for Consultation: Gallstone pancreatitis Attending Physician: Ema Lynne, History of Present Illness This is a 72-year-old female who presented to the emergency department at [facility] today secondary to abdominal pain. Patient reports that for approximately last month she has been having issues with indigestion. She describes some generalized abdominal pain usually 20 to 30 minutes after eating a meal. She notes that she would take kexd-fdc-qnatshc remedies such as Tums which would alleviate her symptoms. She notes that earlier today shortly after eating a meal she developed severe epigastric pain that radiated to her back into the right upper quadrant of her abdomen. She denies any nausea or vomiting. She denies any fevers, shakes, or chills. She notes that due to the severity of the pain she presented to the emergency department. She did not note any modifying factors. She does note that she has had prior abdominal surgery in 2003. She notes at this time she had a sigmoid colon resection as she had multiple episodes of diverticulitis in the same year. Of note, the patient denies any alcohol use. Since arrival to the hospital the patient has had labs and imaging which independent reviewed. A CT scan of the abdomen and pelvis showed that the pancreas was enlarged and edematous with peripancreatic infiltration and inflammation consistent with acute pancreatitis. On the study the gallbladder was noted to contain calcified gallstones but no evidence of acute cholecystitis was noted. Postoperative findings from previous sigmoid colon resection were noted. There is no evidence of bowel obstruction. There is no evidence of appendicitis. Labs include a CBC her white blood cell count was normal. H emoglobin and hematocrit along with platelet count were also normal. Chemistry profile showed sodium was 138 with a potassium of 3.3. BUN and creatinine were both normal. LFTs showed that patient had an elevated total bilirubin at 1.9 with an elevated direct bilirubin of 0.9. AST and ALT were 190 and 271 respectively, both elevated. There is also a slight elevation of alkaline phosphatase at 118. Patient's lipase was elevated at 2184. A COVID test was noted be negative. At the time of my interview the patient was resting comfortably in bed in no distress. Allergies Allergy/AdvReac Type Severity Reaction Status Date / Time erythromycin base Allergy Unknown Unknown Verified 07/21/22 19:15 latex Allergy Unknown CONTACT Verified 07/21/22 19:15 DERMATITIS merthiolate Allergy itchy Uncoded 07/21/22 19:21 Seasonal Allergy sneeze, Uncoded 07/21/22 19:19 itchy eyes, congestion Home Medications Medication Instructions Recorded Confirmed Type albuterol sulfate 90 mcg/actuation 2 inh inhalation Q6H PRN Shortness 07/21/22 07/21/22 History aerosol inhaler Of Breath aspirin 81 mg tablet,delayed 81 mg PO DAILY 07/21/22 07/21/22 History release cholecalciferol (vitamin D3) 50 50 mcg PO DAILY 07/21/22 07/21/22 History mcg (2,000 unit) capsule (Vitamin D3) coQ10 (ubiquinol) 200 mg capsule 200 mg PO DAILY 07/21/22 07/21/22 History glucosamine sulf dipot 1 cap PO DAILY 07/21/22 07/21/22 History chlr,msm,chond 550 mg-C 30 mg-greta 1 mg capsule (Glucosamine Chondroitin) ibuprofen 200 mg tablet (Advil) 200 mg PO BID 07/21/22 07/21/22 History indapamide 1.25 mg tablet 1.25 mg PO DAILY 07/21/22 07/21/22 History levocetirizine 5 mg tablet (Xyzal) 5 mg PO PM 07/21/22 07/21/22 History losartan 100 mg tablet 100 mg PO HS 07/21/22 07/21/22 History metformin 750 mg tablet,extended 1,500 mg PO DAILY 07/21/22 07/21/22 History release 24 hr pravastatin 20 mg tablet 20 mg PO DAILY 07/21/22 07/21/22 History turmeric root extract 500 mg tablet 500 mg PO DAILY 07/21/22 07/21/22 History Patient History Medical History DM type 2 (diabetes mellitus, type 2) Dyslipidemia HTN (hypertension) BAILEE on CPAP Trochanteric bursitis of left hip Surgical History H/O colectomy History of hysterectomy Family History Mother Hypertension Social History Smoking Status: Never smoker Second Hand Exposure: No; Do You Dip or Chew Tobacco: No; Tobacco Cessation Education Requested by Patient: No Hx Alcohol Use: No Hx Substance Use: No Preferred Language: Somali Communication Ability: Effective Intermediate Designer Required: No Beliefs That Will Affect Care: None Current Living Situation: Alone Other Information That Helps Us Care for You: No Feels Safe at Home: Yes Safety Concerns: Feels Safe At This Time Assistive Devices: CPAP and Glasses Review of Systems Constitutional: no fever and no chills Eyes: + corrective lenses Ear, Nose, Mouth, Throat: no ear pain Respiratory: no cough Cardiovascular: no chest pain Gastrointestinal: as per Subjective / HPI Genitourinary: no dysuria Musculoskeletal: + back pain (Radiating from abdomen) Integumentary: no rash Neurologic: no localized weakness Physical Exam Constitutional: WD/WN, vitals as above Eyes: + anicteric sclerae; no conjunctival abnormality ENMT: Ears: no hearing impairment and no external ear abnormality Mouth: no oropharynx abnormality Neck: trachea midline Respiratory: normal respiratory effort; no respiratory distress and no labored breathing Cardiovascular: Rate/Rhythm: regular rate and regular rhythm Gastrointestinal (Abdomen): Abdomen is minimally distended and nonrigid. She had marked tenderness with light palpation in the epigastric area. She did have some tenderness to palpation in the right upper quadrant but not as severe as the right upper quadrant. Musculoskeletal: No calf tenderness Skin: no rashes Neurologic: moves all extremities Psychiatric: A+Ox3, euthymic affect Results & Data ([facility]) Vital Signs (Past 12 Hours) Vital Signs Temp Pulse Pulse Resp BP BP Pulse Ox 07/21/22 21:17 37.1 C 80 16 162/67 H 96 07/21/22 20:21 89 18 192/90 H 97 07/21/22 18:05 90 18 185/88 H 97 07/21/22 16:23 77 18 97 07/21/22 16:23 36.7 C 76 18 137/86 97 07/21/22 16:01 36.6 C 79 18 200/98 H 99 O2 Del Method 07/21/22 21:17 Room Air 07/21/22 20:21 Room Air 07/21/22 18:05 Room Air 07/21/22 16:23 Room Air 07/21/22 16:23 Room Air 07/21/22 16:01 Room Air PG Care Time/CCT Total # of Minutes Spent Total Time Spent with Patient: Total time spent is greater than 50% in coordination of care (as documented) at patient's floor/unit and/or counseling patient: Coding Level of Care Code 82210 INT INP/OBS CARE 3/75MIN Diagnoses Pancreatitis K85.90 Chronicity: acute (1) Pancreatitis Chronicity: acute
[2022-07-21] MEDS: LOSARTAN POTASSIUM 50 MG TAB PO SCH (22:22)
[2022-07-21] MEDS: INSULIN ASPART PER UNIT SC SCH (23:46)
[2022-07-22] MEDS: POTASSIUM CHLORIDE / WTR 10 MEQ/100 ML PLCT IV SCH ×2 (00:07→01:30)
[2022-07-22] MEDS: HYDROmorphone INJ 0.5 MG/0.5 ML SYR IV PRN ×4 (01:29→19:40)
[2022-07-22] MEDS: LACTATED RINGER'S 1,000 ML IV SCH ×3 (04:01→21:40)
[2022-07-22] MEDS: INSULIN ASPART PER UNIT SC SCH ×4 (06:17→23:54)
[2022-07-22 06:26] LABS: Hematocrit (blood only) 38.3 % (37.0-47.0); Hemoglobin 13.9 g/dl (12.0-16.0); Mean Corpuscular Hemoglobin 31.3 pg (25.0-34.0); Mean Corpuscular Hgb Conc 36.3 g/dL (32.0-36.0); Mean Corpuscular Volume 86.3 fL (80.0-100.0); Mean Platelet Volume 11.2 fL (9.4-12.4); Platelet Count 170 K/uL (130-400); RDW Coefficient of Variation 13.3 % (11.5-14.5); RDW Standard Deviation 41.6 fL (36.4-46.3); Red Blood Count 4.44 M/uL (4.20-5.40); White Blood Count 7.84 K/ul (4.8-10.8)
[2022-07-22 07:13] LABS: Albumin Globulin Ratio 1.7 (0.9-2); Albumin Level 3.8 gm/dl (3.4-5.0); BUN Creatinine Ratio 14.9 (10-20); Calcium 9.4 mg/dl (8.5-10.1); Chol HDL Ratio 3.3 (0-5); Creatinine Clr Calc Pharmacy 10.4 ml/min; Est GFR (African American) 93.2 ml/min; Est GFR (Non-African American) 80.4 ml/min; Globulin 2.3 gm/dl (2.5-4.0); Potassium 4.1 mmol/L (3.5-5.1); Total Protein 6.1 gm/dl (6.0-8.3)
--- NOTE | 2022-07-22 08:07 | Surgery Progress Note ---
Date of Service July 22, 2022 Assessment & Plan (1) Pancreatitis: Plan: Patient here with concern for gallstone pancreatitis as evident on CT scan and lab work MRCP obtained and read is pending Today's labs show WBC 7.8, Tb: 3.1 (1.9), AST 200, ALT 322, lipase pending On exam abdomen soft, with ttp in the epigatric/ruq regions Awaiting GI evaluation Pending GI workup and pancreatitis resolving we will tentatively place pt on the OR schedule for tomorrow for lap gordy NPO at midnight (2) Cholelithiasis: Admission and Anticipated Discharge Date Admission Date: July 21, 2022 Supervising Physician Co-Signing Physician Notes I personally saw and evaluated the patient with Ivan Benavidez PA-C and agree with the assessment and plan. 72-year-old female with gallstone pancreatitis MRCP is still pending Her LFTs continue to rise She is tentatively on the schedule for an ERCP as well as a lap gordy tomorrow Subjective Patient reports ongoing abdominal pain that radiates into the back. Physical Exam Physical Exam: awake/alert Gastrointestinal (Abdomen): Percussion/Palpation: + abdomen tender (ttp in the epigastric region and RUQ) and abdomen soft Results & Data ([facility]) Vital Signs (Past 12 Hours) Vital Signs Temp Pulse Resp BP Pulse Ox O2 Del Method FiO2 07/22/22 07:32 37.2 C 85 16 152/53 H 92 Room Air 07/22/22 00:05 21 07/21/22 21:17 37.1 C 80 16 162/67 H 96 Room Air 07/21/22 20:21 89 18 192/90 H 97 Room Air PG Care Time/CCT Total # of Minutes Spent Total Time Spent with Patient: Total time spent is greater than 50% in coordination of care (as documented) at patient's floor/unit and/or counseling patient: Coding Level of Care Code 82735 SUB INP/OBS CARE 07/10MIN Diagnoses Pancreatitis K85.90 Acute pancreatitis complication: unspecified Chronicity: acute Pancreatitis type: unspecified pancreatitis type Cholelithiasis K80.20 Cholelithiasis location: other site (1) Pancreatitis Acute pancreatitis complication: unspecified Chronicity: acute Pancreatitis type: unspecified pancreatitis type Qualified Code(s): K85.90 - Acute pancreatitis without necrosis or infection, unspecified (2) Cholelithiasis Cholelithiasis location: other site
--- NOTE | 2022-07-22 08:18 | Gastrointestinal Consultation ---
Date of Consultation July 22, 2022 Assessment & Plan (1) Elevated LFTs: (2) Cholelithiasis: (3) Pancreatitis: (4) Epigastric abdominal pain: Plan This is a 72-year-old female who presents with acute on chronic epigastric pain which began about a month ago and worsened prior to arrival. She was found to have elevated LFTs, elevated bilirubin, and lipase. CT suggestive of pancreatitis and mild biliary dilation. MRCP pending. Overall presentation suggests concern for pancreatitis, possibly gallstone in origin and concern for choledocholithiasis as well. - Await MRCP results - Keep NPO - Continue IVF; she's had almost 2 pt drop in H/H - Continue IV analgesia PRN - Continue IV antiemetics PRN - Continue broad-spectrum ABX - Daily LFTs - Will plan for ERCP tomorrow to evaluate for possible choledocholithiasis General surgery consult for consideration of cholecystectomy Thank you for allowing us to participate in the care of this patient. Please call with any acute changes, questions or concerns. Please see addendum below with additional recommendation from my supervising physician. Supervising Physician Co-Signing Physician Notes Saw and evaluated the patient. For consulted for evaluation of right-sided abdominal discomfort in the setting of liver enzymes. The patient does have evidence of cholelithiasis on imaging, MRCP is still pending. As the patient's bilirubin does continue to rise we wonder if she may have choledocholithiasis. Physical exam no obvious distress, sclera clear is noted RUQ Tenderness noted. Impression: Patient presents with signs and symptoms suggestive of choledocholithiasis. We are awaiting MRCP for clarification to determine if ERCP is needed. Would recommend that the patient be empirically started on antibiotic coverage. I have made arrangements for potential ERCP tomorrow morning which is the next available in the OR and by our endoscopy unit capabilities. I have discussed the risks and benefits of ERCP to include bleeding, infection, perforation, pain, pancreatitis, failed biliary cannulation and the need for follow-up studies. History of Present Illness Reason for Consultation: pancreatitis Requesting Physician: SHOLA Luis Attending Physician: Praveen Clark MD History of Present Illness This is a 72 y/o female with PMHx DM, DLD, BAILEE, HTN, h/o diverticulitis s/p partial colectomy, admitted after presenting with epigastric discomfort. On arrival had elevated LFTs, bilirubin, lipase, and mild hypoK. CTAP suggestive of acute pancreatitis, cholelithiasis without acute cholecystitis. This AM had slight bump in LFTS, bili is 3.0, K is 4.0, WBC 7, HGB 13.9. Trigs 122. MRCP was done but final report is pending. She was started on IV fluids, analgesia; now also on IV antibiotics. Currently feels her pain is slightly relieved with analgesia. Has been making good urine as well; > 1,000 mL last night and overnight. She states for the last month she has had intermittent epigastric discomfort, that feels like a pressure that she has relieved with belching. She has been taking a lot of Tums and Gas-X as well. The day she presented to the hospital, her symptoms got acutely worse after eating, and the pain radiated to her back, along with having some nausea. She has noticed dark urine as well. She does take daily NSAIDs for joint pain, usually a few Advil per day. Denies vomiting, hematemesis, melena or hematochezia, jaundice, fevers or chills, CP, SOB. No prior gastric surgery, she has had partial colectomy. No tobacco or EtOH use. Allergies Allergy/AdvReac Type Severity Reaction Status Date / Time erythromycin base Allergy Unknown Unknown Verified 07/21/22 19:15 latex Allergy Unknown CONTACT Verified 07/21/22 19:15 DERMATITIS merthiolate Allergy itchy Uncoded 07/21/22 19:21 Seasonal Allergy sneeze, Uncoded 07/21/22 19:19 itchy eyes, congestion Home Medications Medication Instructions Recorded Confirmed Type albuterol sulfate 90 mcg/actuation 2 inh inhalation Q6H PRN Shortness 07/21/22 07/21/22 History aerosol inhaler Of Breath aspirin 81 mg tablet,delayed 81 mg PO DAILY 07/21/22 07/21/22 History release cholecalciferol (vitamin D3) 50 50 mcg PO DAILY 07/21/22 07/21/22 History mcg (2,000 unit) capsule (Vitamin D3) coQ10 (ubiquinol) 200 mg capsule 200 mg PO DAILY 07/21/22 07/21/22 History glucosamine sulf dipot 1 cap PO DAILY 07/21/22 07/21/22 History chlr,msm,chond 550 mg-C 30 mg-greta 1 mg capsule (Glucosamine Chondroitin) ibuprofen 200 mg tablet (Advil) 200 mg PO BID 07/21/22 07/21/22 History indapamide 1.25 mg tablet 1.25 mg PO DAILY 07/21/22 07/21/22 History levocetirizine 5 mg tablet (Xyzal) 5 mg PO PM 07/21/22 07/21/22 History losartan 100 mg tablet 100 mg PO HS 07/21/22 07/21/22 History metformin 750 mg tablet,extended 1,500 mg PO DAILY 07/21/22 07/21/22 History release 24 hr pravastatin 20 mg tablet 20 mg PO DAILY 07/21/22 07/21/22 History turmeric root extract 500 mg tablet 500 mg PO DAILY 07/21/22 07/21/22 History Patient History Medical History DM type 2 (diabetes mellitus, type 2) Dyslipidemia HTN (hypertension) BAILEE on CPAP Trochanteric bursitis of left hip Surgical History H/O colectomy History of hysterectomy Family History Mother Hypertension Social History Smoking Status: Never smoker Second Hand Exposure: No; Do You Dip or Chew Tobacco: No; Tobacco Cessation Education Requested by Patient: No Hx Alcohol Use: No Hx Substance Use: No Preferred Language: [place] Communication Ability: Effective Barrel Roller Required: No Beliefs That Will Affect Care: None Current Living Situation: Alone Other Information That Helps Us Care for You: No Feels Safe at Home: Yes Safety Concerns: Feels Safe At This Time Assistive Devices: CPAP and Glasses Review of Systems Review of Systems: All systems reviewed & are unremarkable except as noted in HPI & below Physical Exam Constitutional: well developed, well nourished and comfortable; no acute distress Eyes: Sclera anicteric, no conjunctival injection ENMT: moist mucous membranes, no pallor Neck: trachea midline supple Respiratory: normal respiratory effort, lungs clear to auscultation Cardiovascular: RRR, no murmur, no edema Gastrointestinal (Abdomen): Inspection/Auscultation: abdomen normal to inspection and normal bowel sounds; abdomen not distended + moderately tender to the epigastrium; no rebound, guarding Skin: no rashes, warm and dry Neurologic: alert and oriented x 3, no obvious focal neuro deficit Psychiatric: normal mood and affect Results & Data ([facility]) Vital Signs (Past 12 Hours) Vital Signs Temp Pulse Resp BP Pulse Ox O2 Del Method FiO2 07/22/22 07:32 37.2 C 85 16 152/53 H 92 Room Air 07/22/22 00:05 21 07/21/22 21:17 37.1 C 80 16 162/67 H 96 Room Air 07/21/22 20:21 89 18 192/90 H 97 Room Air Laboratory Results 07/22/22 07/22/22 07/22/22 Range/Units 05:53 05:40 05:40 WBC (4.8-10.8) K/ul RBC (4.20-5.40) M/uL Hgb (12.0-16.0) g/dl Hct (37.0-47.0) % MCV (80.0-100.0) fL MCH (25.0-34.0) pg MCHC (32.0-36.0) g/dL RDW Std Deviation (36.4-46.3) fL RDW Coeff of Francine (11.5-14.5) % Plt Count (130-400) K/uL MPV (9.4-12.4) fL Immature Gran % (Auto) % Neut % (Auto) % Lymph % (Auto) % [place] % (Auto) % Eos % (Auto) % Baso % (Auto) % Neut # (Auto) (1.40-6.50) K/uL Lymph # (Auto) (1.2-3.4) K/uL [place] # (Auto) (0.11-0.59) K/uL Eos # (Auto) (0-0.50) K/uL Baso # (Auto) (0-0.2) K/uL Immature Gran # (Auto) (0.01-0.20) K/uL Sodium 141 (136-145) mmol/L Potassium 4.1 D (3.5-5.1) mmol/L Chloride 106 (98-107) mmol/L Carbon Dioxide 29 (21-32) mmol/L Anion Gap 6 (3-11) BUN 11 (6-23) mg/dl Creatinine 0.74 (0.6-1.2) mg/dl Est Cr Clr Drug Dosing 10.4 ml/min Est GFR ( Amer) 93.2 ml/min Est GFR (Non-Af Amer) 80.4 ml/min BUN/Creatinine Ratio 14.9 (10-20) Glucose 118 H (70-99(Fasting)) mg/dl POC Glucose 121 H (70-99) mg/dl Estimat Average Glucose Pending Hemoglobin A1c Pending Calcium 9.4 (8.5-10.1) mg/dl Magnesium (1.7-2.4) mg/dl Total Bilirubin 3.0 H D (0.2-1.0) mg/dl Direct Bilirubin (0-0.2) mg/dl AST 200 H (13-39) U/L ALT 326 H (7-52) U/L Alkaline Phosphatase 102 (34-104) U/L Total Protein 6.1 (6.0-8.3) gm/dl Albumin 3.8 (3.4-5.0) gm/dl Globulin 2.3 L (2.5-4.0) gm/dl Albumin/Globulin Ratio 1.7 (0.9-2) Triglycerides 122 (0-150) mg/dl Cholesterol 166 (0-200) mg/dl LDL Cholesterol, Calc 91 mg/dl VLDL Cholesterol, Calc 24 (0-30) mg/dl HDL Cholesterol 51 mg/dl Cholesterol/HDL Ratio 3.3 (0-5) Lipase Pending (11-82) U/L Urine Color Urine Appearance (Clear) Urine pH (4.5-7.5) Ur Specific [place] (1.000-1.030) Urine Protein (Negative) Urine Glucose (UA) (Negative) Urine Ketones (Negative) Urine Blood (Negative) Urine Nitrite (Negative) Urine Bilirubin (Negative) Urine Urobilinogen (Negative) Ur Leukocyte Esterase (Negative) Urine WBC (Auto) (0-5) /hpf Urine RBC (Auto) (0-4) /hpf U Hyaline Cast (Auto) (0-5) /lpf U Epithel Cells (Auto) (0-5) /lpf Urine Bacteria (Auto) (Negative) SARS-CoV-2, RNA, NAAT (NEGATIVE) 07/22/22 07/21/22 07/21/22 Range/Units 05:40 23:37 18:07 WBC 7.84 (4.8-10.8) K/ul RBC 4.44 (4.20-5.40) M/uL Hgb 13.9 (12.0-16.0) g/dl Hct 38.3 (37.0-47.0) % MCV 86.3 (80.0-100.0) fL MCH 31.3 (25.0-34.0) pg MCHC 36.3 H (32.0-36.0) g/dL RDW Std Deviation 41.6 (36.4-46.3) fL RDW Coeff of Francine 13.3 (11.5-14.5) % Plt Count 170 (130-400) K/uL MPV 11.2 (9.4-12.4) fL Immature Gran % (Auto) % Neut % (Auto) % Lymph % (Auto) % [place] % (Auto) % Eos % (Auto) % Baso % (Auto) % Neut # (Auto) (1.40-6.50) K/uL Lymph # (Auto) (1.2-3.4) K/uL [place] # (Auto) (0.11-0.59) K/uL Eos # (Auto) (0-0.50) K/uL Baso # (Auto) (0-0.2) K/uL Immature Gran # (Auto) (0.01-0.20) K/uL Sodium (136-145) mmol/L Potassium (3.5-5.1) mmol/L Chloride (98-107) mmol/L Carbon Dioxide (21-32) mmol/L Anion Gap (3-11) BUN (6-23) mg/dl Creatinine (0.6-1.2) mg/dl Est Cr Clr Drug Dosing ml/min Est GFR ( Amer) ml/min Est GFR (Non-Af Amer) ml/min BUN/Creatinine Ratio (10-20) Glucose (70-99(Fasting)) mg/dl POC Glucose 161 H (70-99) mg/dl Estimat Average Glucose Hemoglobin A1c Calcium (8.5-10.1) mg/dl Magnesium (1.7-2.4) mg/dl Total Bilirubin (0.2-1.0) mg/dl Direct Bilirubin (0-0.2) mg/dl AST (13-39) U/L ALT (7-52) U/L Alkaline Phosphatase (34-104) U/L Total Protein (6.0-8.3) gm/dl Albumin (3.4-5.0) gm/dl Globulin (2.5-4.0) gm/dl Albumin/Globulin Ratio (0.9-2) Triglycerides (0-150) mg/dl Cholesterol (0-200) mg/dl LDL Cholesterol, Calc mg/dl VLDL Cholesterol, Calc (0-30) mg/dl HDL Cholesterol mg/dl Cholesterol/HDL Ratio (0-5) Lipase (11-82) U/L Urine Color Urine Appearance (Clear) Urine pH (4.5-7.5) Ur Specific [place] (1.000-1.030) Urine Protein (Negative) Urine Glucose (UA) (Negative) Urine Ketones (Negative) Urine Blood (Negative) Urine Nitrite (Negative) Urine Bilirubin (Negative) Urine Urobilinogen (Negative) Ur Leukocyte Esterase (Negative) Urine WBC (Auto) (0-5) /hpf Urine RBC (Auto) (0-4) /hpf U Hyaline Cast (Auto) (0-5) /lpf U Epithel Cells (Auto) (0-5) /lpf Urine Bacteria (Auto) (Negative) SARS-CoV-2, RNA, NAAT NEGATIVE (NEGATIVE) 07/21/22 07/21/22 07/21/22 Range/Units 16:15 16:15 16:15 WBC 5.79 (4.8-10.8) K/ul RBC 4.83 (4.20-5.40) M/uL Hgb 15.3 (12.0-16.0) g/dl Hct 41.5 (37.0-47.0) % MCV 85.9 (80.0-100.0) fL MCH 31.7 (25.0-34.0) pg MCHC 36.9 H (32.0-36.0) g/dL RDW Std Deviation 41.3 (36.4-46.3) fL RDW Coeff of Francine 13.3 (11.5-14.5) % Plt Count 188 (130-400) K/uL MPV 11.1 (9.4-12.4) fL Immature Gran % (Auto) 0.2 % Neut % (Auto) 63.7 % Lymph % (Auto) 23.5 % [place] % (Auto) 7.6 % Eos % (Auto) 4.3 % Baso % (Auto) 0.7 % Neut # (Auto) 3.69 (1.40-6.50) K/uL Lymph # (Auto) 1.36 (1.2-3.4) K/uL [place] # (Auto) 0.44 (0.11-0.59) K/uL Eos # (Auto) 0.25 (0-0.50) K/uL Baso # (Auto) 0.04 (0-0.2) K/uL Immature Gran # (Auto) 0.01 (0.01-0.20) K/uL Sodium 138 (136-145) mmol/L Potassium 3.3 L (3.5-5.1) mmol/L Chloride 99 (98-107) mmol/L Carbon Dioxide 32 (21-32) mmol/L Anion Gap 7 (3-11) BUN 13 (6-23) mg/dl Creatinine 0.73 (0.6-1.2) mg/dl Est Cr Clr Drug Dosing 9.9 ml/min Est GFR ( Amer) 94.7 ml/min Est GFR (Non-Af Amer) 81.7 ml/min BUN/Creatinine Ratio 17.8 (10-20) Glucose 182 H (70-99(Fasting)) mg/dl POC Glucose (70-99) mg/dl Estimat Average Glucose Hemoglobin A1c Calcium 10.7 H (8.5-10.1) mg/dl Magnesium 1.8 (1.7-2.4) mg/dl Total Bilirubin 1.9 H (0.2-1.0) mg/dl Direct Bilirubin 0.9 H (0-0.2) mg/dl AST 190 H (13-39) U/L ALT 271 H (7-52) U/L Alkaline Phosphatase 118 H (34-104) U/L Total Protein 7.6 (6.0-8.3) gm/dl Albumin 4.6 (3.4-5.0) gm/dl Globulin (2.5-4.0) gm/dl Albumin/Globulin Ratio (0.9-2) Triglycerides (0-150) mg/dl Cholesterol (0-200) mg/dl LDL Cholesterol, Calc mg/dl VLDL Cholesterol, Calc (0-30) mg/dl HDL Cholesterol mg/dl Cholesterol/HDL Ratio (0-5) Lipase 2184 H (11-82) U/L Urine Color Dark Yellow Urine Appearance Turbid A (Clear) Urine pH 7.5 (4.5-7.5) Ur Specific [place] 1.014 (1.000-1.030) Urine Protein Negative (Negative) Urine Glucose (UA) Negative (Negative) Urine Ketones Negative (Negative) Urine Blood Negative (Negative) Urine Nitrite Positive A (Negative) Urine Bilirubin Negative (Negative) Urine Urobilinogen Negative (Negative) Ur Leukocyte Esterase Negative (Negative) Urine WBC (Auto) 1-5 (0-5) /hpf Urine RBC (Auto) 0-4 (0-4) /hpf U Hyaline Cast (Auto) 1-5 (0-5) /lpf U Epithel Cells (Auto) 5-10 H (0-5) /lpf Urine Bacteria (Auto) 4+ H (Negative) SARS-CoV-2, RNA, NAAT (NEGATIVE) Diagnostic Findings CTAP FINDINGS: Lung bases: The heart is normal in size and without pericardial effusion. The lung bases are clear noting bibasilar scarring/atelectasis. A small fat- containing [place] hernia is seen on the right. Liver: The contrast-enhanced liver is top normal in size and demonstrates diffusely diminished attenuation indicating steatosis. There is mild intrahepatic biliary ductal dilatation. The hepatic veins and portal veins are patent. Gallbladder: There are calcified gallstones without CT evidence of acute cholecystitis. Adenomyomatosis is seen in the fundal region. Spleen: Normal in size and attenuation. Pancreas: The pancreas is mildly enlarged and edematous, with peripancreatic inflammation and fluid. The appearance is consistent with acute pancreatitis. The gland enhances throughout. The duct is normal in caliber. No organized peripancreatic fluid collection is identified. The splenic vein is patent. Adrenal glands: Unremarkable. Kidneys: The contrast enhanced kidneys are normal in size and without hydronephrosis. The kidneys enhance symmetrically. A 3.4 cm cyst is noted in the left lower pole. Abdominal vasculature: The abdominal aorta is normal in course and caliber noting moderate to advanced atherosclerotic calcification. Bowel: There is postoperative change from sigmoid colon resection and colocolonic anastomosis. No bowel obstruction is seen. There is [id number] diverticulosis of the remaining colon without CT evidence of acute diverticulitis. The appendix is well-visualized and normal. Peritoneum: There is no intraperitoneal free air or abdominal ascites. Lymphadenopathy: None. Pelvic viscera: The bladder is normal as visualized. The uterus is surgically absent. No adnexal lesion is seen. Skeletal structures: The skeletal structures are osteopenic. There is mild to moderate lumbosacral spondylosis. Sclerotic change is noted in the sacroiliac joints and pubic symphysis. No lytic or blastic lesions are seen. IMPRESSION: 1. Acute pancreatitis. 2. The gland enhances throughout and no organized peripancreatic fluid collection is seen. 3. Cholelithiasis without CT evidence of acute cholecystitis. 4. Hepatic steatosis. 5. There is mild to moderate diverticulosis of the remaining colon without CT evidence of acute diverticulitis. 6. Additional findings as above. (1) Pancreatitis Acute pancreatitis complication: unspecified Chronicity: acute Pancreatitis type: unspecified pancreatitis type Qualified Code(s): K85.90 - Acute pancreatitis without necrosis or infection, unspecified (2) Cholelithiasis Cholelithiasis location: other site
[2022-07-22 09:18] LABS: Estimated Average Glucose 108 mg/dl; Hemoglobin A1C 5.4 % (4.5-5.6)
[2022-07-22] MEDS: cefTRIAXone SODIUM 2,000 MG in DEXTROSE 5% 50 ML IV SCH (09:32)
--- NOTE | 2022-07-22 09:41 | Electrocardiogram Report ---
Test Reason : Blood Pressure : / mmHG Vent. Rate : 084 BPM Atrial Rate : 084 BPM P-R Int : 200 ms QRS Dur : 070 ms QT Int : 374 ms P-R-T Axes : 054 018 056 degrees QTc Int : 441 ms Normal sinus rhythm Diffuse Minor Nonspecific T wave abnormality Abnormal ECG When compared with ECG of 28-MAR-2014 19:13, Nonspecific T wave abnormality has replaced inverted T waves in Inferior leads Nonspecific T wave abnormality, worse in Anterior leads Confirmed by Billy Raines ([id number]) on 07/22/2022 9:41:20 AM Referred By: REFERRED SELF Confirmed By:Billy Raines
--- NOTE | 2022-07-22 13:46 | Magnetic Resonance Report ---
MR MRCP HISTORY: elevated LFTs, gallstones TECHNIQUE: MRCP of the abdomen was performed without contrast according to standard departmental prot ocol. COMPARISON STUDY: Abdomen and pelvis CT 07/21/2022. FINDINGS: The lung bases are clear. There is a 5 mm T2 hyperintense lesion within the right hepatic l obe which favors a cyst. There is also a 15 mm T2 hyperintense lesion within the right hepatic lobe w hich does not represent a simple cyst. This is incompletely characterized on this noncontrast study b ut favors a hemangioma. There is mild periportal edema. Mild bilateral perinephric edema is noted. Bi lateral renal T2 hyperintense lesions with the largest on the left measuring 3.3 cm. This also favors a cyst. No retroperitoneal lymphadenopathy. Normal caliber abdominal aorta. Peripancreatic edema/flu id consistent the patient's known acute pancreatitis. There is trace perisplenic ascites also noted l ikely due to the acute pancreatitis. Mild thickening of the duodenum is likely reactive to the pancre atitis. The main portal vein appears patent. There are few small gallstones. Cystic foci at the gallb ladder fundus consistent with adenomyomatosis. No filling defects within the normal caliber common bi le duct which measures 5 mm in diameter. The main pancreatic duct is not well visualized due to motio n artifact but also likely normal in caliber. IMPRESSION: 1. Acute pancreatitis again noted. 2. No filling defects within the normal caliber common bile duct to suggest choledocholithiasis. 3. Cholelithiasis. No gallbladder wall thickening. 4. A 15 mm T2 hyperintense indeterminate lesion within the right hepatic lobe which is incompletely c haracterized on this study but favors a hemangioma. ACT 112: Negative or not required by law. Electronically signed by: Augustine Urbina M.D. 07/22/2022 1:44 PM
--- NOTE | 2022-07-22 13:51 | Hospitalist Progress Note ---
Date of Service July 22, 2022 Assessment & Plan (1) Pancreatitis: (2) Cholelithiasis: (3) Elevated LFTs: Plan: This is a 72-year-old female with PMH DM type II, dyslipidemia, BAILEE on CPAP, HTN, history of diverticulitis s/p colectomy who presented to ED on 07/21/22 2/2 epigastric abd pain that radiated to back. Acute Pancreatitis, likely gall stone induced Cholelithiasis Transaminitis Admit to [facility] CT ABD/pelvis showing signs of acute pancreatitis and cholelithiasis without acute cholecystitis. Given cholelithiasis on CT ABD/pelvis, suspicious for gallstone pancreatitis MRCP ordered: results still pending LFTS increased today to AST 200, ALT 326, Total Bili 3.0 and Lipase 3,695 Chol/Trig panel WNL Appreciate GI/General surgery consults Plan for ERCP tomorrow and Lap Lydia, NPO after midnight Continue IVF -- will reduce rate to 100cc/hrLR given adequate drop in hgb already NPO, IV analgesia Pt currently on IV Rocephin for UTI (4) HTN (hypertension): Plan: BP remains mildly elevated, likely secondary to pain Continue home losartan, hold indapamide PRN hydralazine monitor closely (5) DM type 2 (diabetes mellitus, type 2): Plan: Hgb A1c 5.4 on 07/22/22 Hold metformin and utilize NovoLog correction factor only while hospitalized (6) Acute UTI: Plan: UA on admission concerning for infection she is asymptomatic; however culture growing > 100K gram negative bacilli pt placed on rocephin empirically (7) BAILEE on CPAP: Plan: CPAP as per home settings DVT PROPHYLAXIS SCDs Dispo: med/surg, ERCP/Lap lydia tomorrow FULL CODE PCP: Dr. Woodard Pt was seen and examined in collaboration with Dr. Clark, please see addendum A total of 35 minutes were spent with greater than 50% of that time face to face with the patient, personally reviewing all current laboratories, imaging studies, past medication reconciliation, outpatient chart review, and discussion with specialists to collaborate care for the patient with attending. Please see attending documentation for corrections and/or additions. Admission and Anticipated Discharge Date Admission Date: July 21, 2022 Supervising Physician Co-Signing Physician Notes patient seen and examined at bedside as a follow-up of acute pancreatitis, likely gallstone induced, cholelithiasis, transaminitis, UTI. Her admitting labs and imagings were reviewed including CT abdomen pelvis and MRCP which were suggestive of cholelithiasis without acute cholecystitis and pancreatitis. Patient's clinical symptoms of abdominal pain is improving. Lab coronado her lipase is downtrending. GI evaluated, ERCP tomorrow. N.p.o., IV fluid, analgesia. Rocephin 2/ for UTI, follow final urine culture results. Continue with other home medications as able. GI and general surgery evaluated, appreciate recommendation. On examination: Patient on room air, minimal epigastric tenderness, heart and lung examination WNL, rest of the examination is as above. I have seen and examined the patient and have discussed the case with the provider above. I agree with the assessment and plan as stated. Subjective Patient was seen and examined in 379 bed 2. Follow-up gallstone pancreatitis. Currently she complains of 8 out of 10 epigastric pain. It is no longer radiating to her back. She denies any right upper quadrant pain. She denies any further nausea or vomiting. She remains NPO. She denies fever, chills, sweats, lightheadedness, dizziness, chest pain, shortness of breath, diarrhea. She states prior to hospitalization she has been having symptoms on and off for which she has been eating tums and gas X. Typically this would resolve her symptoms, but not yesterday. Review of Systems Review of Systems: All systems reviewed & are unremarkable except as noted in HPI & below Physical Exam Physical Exam: Gen: WD/WN, female, sitting up in bed, NAD, A&O x3 HEENT: Normocephalic, atraumatic, conjunctivae moist, sclerae anicteric, mucous membranes moist. Lung: Clear to Auscultation bilaterally, no wheezes/rales/rhonchi Heart: Regular rate, regular rhythm, no murmurs, rubs, or gallops Abdomen: Soft, pain to palpation in epigastrium, no rebound, no guarding, ND +BS x 4, no jaundice Extremities: No edema Skin: Warm, no rash, negative turgor. Results & Data Results & Data ([facility]) Vital Signs (Past 12 Hours) Vital Signs Temp Pulse Resp BP Pulse Ox O2 Del Method 07/22/22 07:32 37.2 C 85 16 152/53 H 92 Room Air Laboratory Results Short CBC 07/21/22 07/22/22 Range/Units 16:15 05:40 WBC 5.79 7.84 (4.8-10.8) K/ul Hgb 15.3 13.9 (12.0-16.0) g/dl Hct 41.5 38.3 (37.0-47.0) % Plt Count 188 170 (130-400) K/uL BMP 07/21/22 07/22/22 16:15 05:40 Sodium 138 141 Potassium 3.3 L 4.1 D Chloride 99 106 Carbon Dioxide 32 29 BUN 13 11 Creatinine 0.73 0.74 Glucose 182 H 118 H Calcium 10.7 H 9.4 Liver Function 07/21/22 07/22/22 Range/Units 16:15 05:40 Total Bilirubin 1.9 H 3.0 H D (0.2-1.0) mg/dl Direct Bilirubin 0.9 H (0-0.2) mg/dl AST 190 H 200 H (13-39) U/L ALT 271 H 326 H (7-52) U/L Alkaline Phosphatase 118 H 102 (34-104) U/L Albumin 4.6 3.8 (3.4-5.0) gm/dl Urine 07/21/22 Range/Units 16:15 Urine Color Dark Yellow Urine Appearance Turbid A (Clear) Urine pH 7.5 (4.5-7.5) Ur Specific [place] 1.014 (1.000-1.030) Urine Protein Negative (Negative) Urine Glucose (UA) Negative (Negative) Diagnostic Findings Abdomen/Pelvis CT 07/21/22 16:19 CT SCAN OF THE ABDOMEN AND PELVIS WITH IV CONTRAST CLINICAL HISTORY: Epigastric abdominal pain. COMPARISON STUDY: No priors. TECHNIQUE: Following the IV administration of 91 cc of Optiray 350, CT scan of the abdomen and pelvis is performed from the lung bases to the proximal femora. Images are reviewed in the axial, sagittal, and coronal planes. IV contrast was administered without complication. A dose lowering technique was utilized adhering to the principles of ALARA. CT DOSE: 690.39 mGy.cm FINDINGS: Lung bases: The heart is normal in size and without pericardial effusion. The lung bases are clear noting bibasilar scarring/atelectasis. A small fat- containing Bochdalek hernia is seen on the right. Liver: The contrast-enhanced liver is top normal in size and demonstrates diffusely diminished attenuation indicating steatosis. There is mild intrahepatic biliary ductal dilatation. The hepatic veins and portal veins are patent. Gallbladder: There are calcified gallstones without CT evidence of acute cholecystitis. Adenomyomatosis is seen in the fundal region. Spleen: Normal in size and attenuation. Pancreas: The pancreas is mildly enlarged and edematous, with peripancreatic inflammation and fluid. The appearance is consistent with acute pancreatitis. The gland enhances throughout. The duct is normal in caliber. No organized peripancreatic fluid collection is identified. The splenic vein is patent. Adrenal glands: Unremarkable. Kidneys: The contrast enhanced kidneys are normal in size and without hydronephrosis. The kidneys enhance symmetrically. A 3.4 cm cyst is noted in the left lower pole. Abdominal vasculature: The abdominal aorta is normal in course and caliber noting moderate to advanced atherosclerotic calcification. Bowel: There is postoperative change from sigmoid colon resection and colocolonic anastomosis. No bowel obstruction is seen. There is [id number]-im-toktaeya diverticulosis of the remaining colon without CT evidence of acute diverticulitis. The appendix is well-visualized and normal. Peritoneum: There is no intraperitoneal free air or abdominal ascites. Lymphadenopathy: None. Pelvic viscera: The bladder is normal as visualized. The uterus is surgically absent. No adnexal lesion is seen. Skeletal structures: The skeletal structures are osteopenic. There is mild to moderate lumbosacral spondylosis. Sclerotic change is noted in the sacroiliac joints and pubic symphysis. No lytic or blastic lesions are seen. IMPRESSION: 1. Acute pancreatitis. 2. The gland enhances throughout and no organized peripancreatic fluid collection is seen. 3. Cholelithiasis without CT evidence of acute cholecystitis. 4. Hepatic steatosis. 5. There is mild to moderate diverticulosis of the remaining colon without CT evidence of acute diverticulitis. 6. Additional findings as above. ACT 112: Negative or not required by law. Electronically signed by: Sanjay Tong M.D. 07/21/2022 5:42 PM Medications Administered Current Inpatient Medications Acetaminophen (Acetaminophen 325 Mg Tab) 650 mg PO Q4H PRN PRN Reason: pain/fever Stop: 08/20/22 21:14 Dextrose (Dextrose 50% 50 Ml Syringe) 25 - 50 ml IV UD PRN; Protocol PRN Reason: Hypoglycemia Protocol Stop: 08/20/22 21:14 Glucagon (Glucagon For Inj 1 Mg Vial) 1 mg SQ UD PRN; Protocol PRN Reason: Hypoglycemia Protocol Stop: 08/20/22 21:14 Glucose (Glucose 40% Gel 15 Gm Tube) 15 - 30 gm PO UD PRN; Protocol PRN Reason: Hypoglycemia Protocol Stop: 08/20/22 21:14 Glucose (Glucose 10 Tab/Tube) 4 - 8 tab PO UD PRN; Protocol PRN Reason: Hypoglycemia Treatment Stop: 08/20/22 21:14 Hydralazine HCl (Hydralazine Hcl 20 Mg/Ml Vial) 10 mg IV Q6H PRN PRN Reason: HTN Stop: 08/20/22 21:14 Hydromorphone HCl (Hydromorphone Inj 0.5 Mg/0.5 Ml Syr) 0.25 mg IV Q6H PRN PRN Reason: Pain Stop: 08/04/22 21:14 Last Admin: 07/22/22 13:17 Dose: 0.25 mg Lactated Ringer's (Lr) 1,000 mls @ 150 mls/hr IV .Q6H40M ALBERTO Stop: 08/20/22 21:14 Last Admin: 07/22/22 10:53 Dose: 150 mls/hr Ceftriaxone Sodium 2,000 mg/ (Dextrose) 70 mls @ 100 mls/hr IV Q24H ALBERTO; Protocol Stop: 08/01/22 08:59 Last Infusion: 07/22/22 10:19 Dose: Infused Insulin Aspart (Insulin Aspart Per Unit) 0 units SC Q6 ALBERTO Stop: 08/21/22 00:00 Last Admin: 07/22/22 13:00 Dose: Not Given Losartan Potassium (Losartan Potassium 50 Mg Tab) 100 mg PO HS ALBERTO Stop: 08/20/22 21:14 Last Admin: 07/21/22 22:22 Dose: 100 mg Miscellaneous (Carbohydrates For Hypoglycemia ) 15 - 30 gm PO UD PRN PRN Reason: Hypoglycemia Protocol Stop: 08/20/22 21:14 Ondansetron HCl (Ondansetron Inj 2 Mg/Ml 2 Ml Vial) 4 mg IV Q6H PRN PRN Reason: Nausea Stop: 08/20/22 21:14 (1) Pancreatitis Acute pancreatitis complication: unspecified Chronicity: acute Pancreatitis type: unspecified pancreatitis type Qualified Code(s): K85.90 - Acute pancreatitis without necrosis or infection, unspecified (2) Cholelithiasis Cholelithiasis location: other site
[2022-07-22] MEDS ORDERED: Nursing to Pharmacy Communication SCH (20:00)
[2022-07-22] MEDS: LOSARTAN POTASSIUM 50 MG TAB PO SCH (20:54)
[2022-07-22] MEDS: ONDANSETRON INJ 2 MG/ML 2 ML VIAL IV PRN (22:22)
[2022-07-23] MEDS: HYDROmorphone INJ 0.5 MG/0.5 ML SYR IV PRN (04:40)
[2022-07-23] MEDS: INSULIN ASPART PER UNIT SC SCH ×5 (06:10→20:59)
[2022-07-23] MEDS ORDERED: LIDOCAINE 2% MPF LOCAL 5 ML VIAL INFIL ONE (07:47)
[2022-07-23] MEDS ORDERED: ROCURONIUM BROMIDE 10 MG/ML 5 ML VIAL IV ONE ×6 (07:47→09:38)
[2022-07-23] MEDS ORDERED: MIDAZOLAM HCL 1 MG/ML 2ML VIAL ONE (07:47)
[2022-07-23] MEDS ORDERED: PROPOFOL IV EMULSION 10 MG/ML 20 ML VIAL IV ONE (07:47)
[2022-07-23] MEDS ORDERED: fentaNYL citrate 100 MCG/2 ML VIAL ONE ×2 (07:47→10:02)
--- NOTE | 2022-07-23 07:58 | History & Physical Bridge Note ---
Date of Service July 23, 2022 History & Physical Bridge Note I have examined the patient, reviewed the History & Physical and in the interval since the performance of the History & Physical I have noted the following changes of clinical significance: no changes noted. As the patient presented with gallstone pancreatitis and had an elevated bilirubin of 3, I suspect she may have a stone within her common bile duct. Thus I would suggest that we do an EGD with EUS this morning and ERCP if a stone is found in the distal common bile duct. The patient will then have a cholecystectomy performed by general surgery.
--- NOTE | 2022-07-23 08:07 | Surgery Progress Note ---
Date of Service July 23, 2022 Assessment & Plan (1) Cholelithiasis: Plan: Her abdominal pain is improving She is going to have a ERCP today with GI We will plan on laparoscopic cholecystectomy, possible open, possible intraoperative cholangiogram today Consent was obtained, risks discussed including bleeding, infection, bile leak, ductal injury, injury to surrounding structures (2) Pancreatitis: Admission and Anticipated Discharge Date Admission Date: July 21, 2022 Subjective Patient seen and examined. Her abdominal pain is improving. No nausea or vomiting. Physical Exam Constitutional: WD/WN, vitals as above Gastrointestinal (Abdomen): Inspection/Auscultation: abdomen normal to inspection; abdomen not distended Percussion/Palpation: + abdomen tender (Epigastric, improving) and abdomen soft Results & Data ([facility]) Vital Signs (Past 12 Hours) Vital Signs Temp Pulse Resp BP BP Pulse Ox O2 Del Method 07/23/22 07:47 36.8 C 80 18 158/73 H 95 Room Air 07/23/22 07:33 36.9 C 83 18 153/73 H 93 Room Air 07/23/22 03:25 18 07/22/22 23:20 17 07/22/22 22:10 37.2 C 78 16 151/78 H 94 Room Air FiO2 07/23/22 07:47 07/23/22 07:33 07/23/22 03:25 21 07/22/22 23:20 21 07/22/22 22:10 PG Care Time/CCT Total # of Minutes Spent Total Time Spent with Patient: Total time spent is greater than 50% in coordination of care (as documented) at patient's floor/unit and/or counseling patient: Coding Level of Care Code 90112 SUB INP/OBS CARE 07/10MIN Diagnoses Cholelithiasis K80.20 Cholelithiasis location: other site Pancreatitis K85.90 Chronicity: acute Pancreatitis type: unspecified pancreatitis type Acute pancreatitis complication: unspecified (1) Cholelithiasis Cholelithiasis location: other site (2) Pancreatitis Chronicity: acute Pancreatitis type: unspecified pancreatitis type Acute pancreatitis complication: unspecified Qualified Code(s): K85.90 - Acute pancreatitis without necrosis or infection, unspecified
[2022-07-23] MEDS ORDERED: INDOMETHACIN 50 MG SUPP PR ONE (08:12)
--- NOTE | 2022-07-23 08:24 | Anesthesiology Consultation ---
Date of Service July 23, 2022 Assessment & Plan Chart Review Chart Review: Acceptable Risk for Surgery and Patient NOT seen in Pre Admission Testing Consults Requested none ASA ASA3 Proposed Anesthesia Anesthesia Type: General Risk / Benefits Reviewed With: PT / POA / Parent / Guardian, Accepts Plan and Informed Consent Obtained History Surgery Operation Date: 07/23/22 08:15 Proposed Procedures p Endoscopic Retrograde Cholangiopancreatogram, Possible Open - Teresa Mendez DO s Laparoscopic Cholecystectomy - [place] Hill DO Operation Date: 07/23/22 11:15 Proposed Procedures p Laparoscopic Cholecystectomy, Possible Open - Cole Hill DO Height/Weight Height: 5 ft 2 in Weight: 80.2 kg Allergies Allergy/AdvReac Type Severity Reaction Status Date / Time erythromycin base Allergy Unknown Unknown Verified 07/21/22 19:15 latex Allergy Unknown CONTACT Verified 07/21/22 19:15 DERMATITIS merthiolate Allergy itchy Uncoded 07/21/22 19:21 Seasonal Allergy sneeze, Uncoded 07/21/22 19:19 itchy eyes, congestion Medications Home Medications Medication Instructions Recorded Confirmed Last Taken albuterol sulfate 90 mcg/actuation 2 inh inhalation Q6H PRN Shortness 07/21/22 07/21/22 Unknown aerosol inhaler Of Breath aspirin 81 mg tablet,delayed 81 mg PO DAILY 07/21/22 07/21/22 Unknown release cholecalciferol (vitamin D3) 50 50 mcg PO DAILY 07/21/22 07/21/22 Unknown mcg (2,000 unit) capsule (Vitamin D3) coQ10 (ubiquinol) 200 mg capsule 200 mg PO DAILY 07/21/22 07/21/22 Unknown glucosamine sulf dipot 1 cap PO DAILY 07/21/22 07/21/22 Unknown chlr,msm,chond 550 mg-C 30 mg-greta 1 mg capsule (Glucosamine Chondroitin) ibuprofen 200 mg tablet (Advil) 200 mg PO BID 07/21/22 07/21/22 Unknown indapamide 1.25 mg tablet 1.25 mg PO DAILY 07/21/22 07/21/22 Unknown levocetirizine 5 mg tablet (Xyzal) 5 mg PO PM 07/21/22 07/21/22 Unknown losartan 100 mg tablet 100 mg PO HS 07/21/22 07/21/22 Unknown metformin 750 mg tablet,extended 1,500 mg PO DAILY 07/21/22 07/21/22 Unknown release 24 hr pravastatin 20 mg tablet 20 mg PO DAILY 07/21/22 07/21/22 Unknown turmeric root extract 500 mg tablet 500 mg PO DAILY 07/21/22 07/21/22 Unknown Active Medications Generic Name Dose Route Start Last Admin Trade Name Freq PRN Reason Stop Dose Admin Hydromorphone HCl 0.25 mg 07/21/22 21:15 07/23/22 04:40 Hydromorphone Inj 0.5 Mg/0.5 Ml Syr IV 08/04/22 21:14 0.25 mg Q6H PRN Administration Pain Lactated Ringer's 1,000 mls @ 100 mls/hr 07/21/22 21:15 07/23/22 07:45 Lr IV 08/20/22 21:14 Infused .Q10H ALBERTO Infusion Ceftriaxone Sodium 2,000 mg/ 70 mls @ 100 mls/hr 07/22/22 09:00 07/22/22 10:19 Dextrose IV 08/01/22 08:59 Infused Q24H ALBERTO Infusion Protocol Insulin Aspart 0 units 07/22/22 00:00 07/23/22 06:10 Insulin Aspart Per Unit SC 08/21/22 00:00 Not Given Q6 ALBERTO Losartan Potassium 100 mg 07/21/22 21:15 07/22/22 20:54 Losartan Potassium 50 Mg Tab PO 08/20/22 21:14 100 mg HS ALBERTO Administration Ondansetron HCl 4 mg 07/21/22 21:15 07/22/22 22:22 Ondansetron Inj 2 Mg/Ml 2 Ml Vial IV 08/20/22 21:14 4 mg Q6H PRN Administration Nausea NPO Date Last Intake of Fluids: 07/22/22 Time Last Intake of Fluids: 21:00 Date Last Intake of Solids: 07/21/22 Time Last Intake of Solids: 13:00 Past Medical History Medical History DM type 2 (diabetes mellitus, type 2) Dyslipidemia HTN (hypertension) BAILEE on CPAP Trochanteric bursitis of left hip Exercise / Class Metabolic Activity II 4-5 Yardwork/Stairs/Walk up hill Past Family History Family History Mother Hypertension Past Surgical History Surgical History H/O colectomy History of hysterectomy Past Anesthesia History No Hx of Anesthesia Complications and No Family Hx of Anesthesia Complications History of PONV No Hx of PONV and No Hx of Motion Sickness Social History Smoking Status: Never smoker Do You Dip or Chew Tobacco: No Hx Alcohol Use: No Hx Substance Use: No Physical Exam Vital Signs Last Vital Signs Temp 36.8 C 07/23/22 07:47 Pulse 80 07/23/22 07:47 Resp 18 07/23/22 07:47 BP 158/73 H 07/23/22 07:47 Pulse Ox 95 07/23/22 07:47 O2 Del Method 07/23/22 07:47 FiO2 21 07/23/22 03:25 Constitutional + obese; no acute distress ENMT Mouth: no dentition abnormality Thyromental Distance: < 3.5 Finger Breadths Mallampati Class: II Neck normal visual inspection and trachea midline; neck extension not limited Respiratory normal respiratory effort Auscultation: lungs clear to auscultation bilaterally Cardiovascular Rate/Rhythm: regular rate and regular rhythm Heart Sounds: no murmur Vessels: no carotid bruit Musculoskeletal Spine: normal cervical ROM and no pain with cervical ROM Extremities: full ROM of extremities Neurologic moves all extremities Motor/Sensory: no sensory deficit Psychiatric Orientation: alert and oriented x 3 Testing Laboratory Results 07/22/22 05:40 07/22/22 05:40 Hemoglobin A1c 5.4 % (4.5-5.6) 07/22/22 05:40 Urine Color Dark Yellow 07/21/22 16:15 Urine Appearance Turbid (Clear) A 07/21/22 16:15 Urine pH 7.5 (4.5-7.5) 07/21/22 16:15 Ur Specific [place] 1.014 (1.000-1.030) 07/21/22 16:15 Urine Protein Negative (Negative) 07/21/22 16:15 Urine Glucose (UA) Negative (Negative) 07/21/22 16:15 Urine Ketones Negative (Negative) 07/21/22 16:15 Urine Nitrite Positive (Negative) A 07/21/22 16:15 Ur Leukocyte Esterase Negative (Negative) 07/21/22 16:15 Urine WBC (Auto) 1-5 /hpf (0-5) 07/21/22 16:15 Urine RBC (Auto) 0-4 /hpf (0-4) 07/21/22 16:15 U Hyaline Cast (Auto) 1-5 /lpf (0-5) 07/21/22 16:15 U Epithel Cells (Auto) 5-10 /lpf (0-5) H 07/21/22 16:15 Urine Bacteria (Auto) 4+ (Negative) H 07/21/22 16:15 07/21/22 16:15 Urine Culture - Preliminary Urine,Clean Catch Escherichia coli 07/21/22 21:19 Aerobic Blood Culture - Preliminary Blood No growth in Aerobic bottle after 24 hours. Anaerobic Blood Culture - Preliminary No growth in Anaerobic bottle after 24 hours. 07/21/22 21:27 Aerobic Blood Culture - Preliminary Blood No growth in Aerobic bottle after 24 hours. Anaerobic Blood Culture - Preliminary No growth in Anaerobic bottle after 24 hours. 07/23/22 07/23/22 07/22/22 07:57 06:08 23:47 POC Glucose 91 94 103 H Electrocardiogram Date: 07/21/22 Findings: + NSR @ (at 84) and + NSST changes
[2022-07-23] MEDS ORDERED: NALOXONE HCL 0.4 MG/1 ML VIAL/CARP IV PRN (08:50)
[2022-07-23] MEDS ORDERED: FLUMAZENIL 0.1 MG/1 ML 10 ML VIAL IV PRN (08:50)
[2022-07-23] MEDS ORDERED: PROMETHAZINE HCL 12.5 MG in SODIUM CHLORIDE 0.9% 50 ML IV PRN (08:50)
[2022-07-23] MEDS ORDERED: fentaNYL citrate 100 MCG/2 ML VIAL IV PRN (08:50)
[2022-07-23] MEDS ORDERED: ATROPINE SULFATE 0.1 MG/ML 10ML SYR IV PRN (08:50)
[2022-07-23] MEDS ORDERED: ePHEDrine sulfate 50 MG/ML AMP IV PRN (08:50)
[2022-07-23] MEDS ORDERED: LABETALOL HCL IV 5 MG/ML 20ML IV PRN (08:50)
[2022-07-23] MEDS ORDERED: ONDANSETRON INJ 2 MG/ML 2 ML VIAL IV PRN (08:50)
[2022-07-23] MEDS ORDERED: BUPIVACAINE/EPINEPHRINE 0.25% 1:200,000 30 ML VIAL ONE (09:11)
[2022-07-23] MEDS ORDERED: ACETAMINOPHEN 1000 MG/100 ML IV IV ONE (09:13)
--- NOTE | 2022-07-23 09:35 | Post Operative Brief Note ---
Immediate Post Op Note v1 Date of Surgery July 23, 2022 Pre & Post Diagnosis Operation Date: 07/23/22 08:15 Pre-Op Diagnosis: PANCREATITIS Post-Op Diagnosis: Normal EGD; Gallstones; Dottie Berry Tear I identified the patient and participated in the time-out.: Yes Procedure Operation Date: 07/23/22 08:15 Actual Procedures s Esophagogastroduodenoscopy(Not Applicable) - Teresa Mendez DO s Endoscopic Ultrasonography Upper(Not Applicable) - Teresa Mendez DO p Endoscopic Retrograde Cholangiopancreato(Not Applicable) - Teresa Mendez DO Operation Date: 07/23/22 11:15 <No data on this case meets the specified criteria> Surgeon Teresa Mendez, Broommaking Supervisor none Estimated Blood Loss 30 Findings Consistent with Post-Op Diagnosis
[2022-07-23] MEDS ORDERED: ALBUTEROL HFA 8 GM INHALER INH ONE (09:38)
--- NOTE | 2022-07-23 09:38 | Communication Note ---
Date of Service: July 23, 2022 the patient underwent EGD, endoscopic ultrasound followed by ERCP this morning. She was found to have evidence of choledocholithiasis during endoscopic u ltrasound. Ultrasound from the distal common bile duct, performed a biliary sternotomy and placed stent. Upon withdrawal of the ERCP scope gastric tract thus a regular upper endoscope was reinserted. This revealed a tear at the GE junction consistent with a Dottie-Berry tear likely from passage of the endoscopic ultrasound endoscope. This required treatment with epinephrine injection, clip placement and ultimately use of Hemospray resulting in cessation of bleeding recommendations cholecystectomy as planned by general surgery Protonix 40 mg twice daily for 4 weeks Carafate Slurry QID for 10 days repeat ERCP in 6 to 8 weeks for stent removal
--- NOTE | 2022-07-23 09:40 | GI REPORT ---
Patient Name: Pamella Morales Procedure Date: 07/23/2022 8:22 AM Date of : 1950 Admit Type: Inpatient Age: 72 Gender: Female Attending MD: Teresa Mendez DO, Procedure: Upper GI endoscopy Providers: Teresa Mendez DO Referring MD: Robert Woodard, [place] Do Indications: Epigastric abdominal pain, Abdominal pain in the right upper quadrant Medicines: General Anesthesia Complications: No immediate complications. Estimated blood loss: Minimal. Estimated Blood Loss: Estimated blood loss was minimal. Procedure: Pre-Anesthesia Assessment: - Prior to the procedure, a History and Physical was performed, and patient medications, allergies and sensitivities were reviewed. The patient's tolerance of previous anesthesia was reviewed. - The risks and benefits of the procedure and the sedation options and risks were discussed with the patient. All questions were answered and informed consent was obtained. - Patient identification and proposed procedure were verified prior to the procedure by the physician, the nurse and the research agricultural engineer. The procedure was verified in the procedure room. - Pre-procedure physical examination revealed no contraindications to sedation. - ASA Grade Assessment: III - A patient with severe systemic disease. - After reviewing the risks and benefits, the patient was deemed in satisfactory condition to undergo the procedure. - The anesthesia plan was to use general anesthesia. - Immediately prior to administration of medications, the patient was re-assessed for adequacy to receive sedatives. - The heart rate, respiratory rate, oxygen saturations, blood pressure, adequacy of pulmonary ventilation, and response to care were monitored throughout the procedure. - The physical status of the patient was re-assessed after the procedure. After obtaining informed consent, the endoscope was passed under direct vision. Throughout the procedure, the patient's blood pressure, pulse, and oxygen saturations were monitored continuously. The Endoscope was introduced through the mouth, and advanced to the second part of duodenum. The upper GI endoscopy was accomplished without difficulty. The patient tolerated the procedure well. Findings: The examined esophagus was normal. The Z-line was regular and was found 38 cm from the incisors. The entire examined stomach was normal. The examined duodenum was normal. Impression: - Normal esophagus. - Z-line regular, 38 cm from the incisors. - Normal stomach. - Normal examined duodenum. - No specimens collected. Recommendation: - Perform an upper endoscopic ultrasound (UEUS) today. Teresa Mendez D.O. Teresa Mendez, 07/23/2022 9:40:08 AM This report has been signed electronically. Note Initiated On: 07/23/2022 8:22 AM Number of Addenda: 0 I attest to the content of the Intraoperative Record and orders documented therein, exceptions below {[id number]}
--- NOTE | 2022-07-23 09:42 | GI REPORT ---
Patient Name: Pamella Morales Procedure Date: 07/23/2022 8:22 AM Date of : 1950 Admit Type: Inpatient Age: 72 Gender: Female Attending MD: Teresa Mendez DO, Procedure: Upper EUS Providers: Teresa Mendez DO Referring MD: Cole Garcia Do Indications: Elevated liver enzymes, Suspected choledocholithiasis Medicines: General Anesthesia Complications: No immediate complications. Estimated blood loss: Minimal. Estimated Blood Loss: Estimated blood loss was minimal. Procedure: Pre-Anesthesia Assessment: - Prior to the procedure, a History and Physical was performed, and patient medications, allergies and sensitivities were reviewed. The patient's tolerance of previous anesthesia was reviewed. - The risks and benefits of the procedure and the sedation options and risks were discussed with the patient. All questions were answered and informed consent was obtained. - Patient identification and proposed procedure were verified prior to the procedure by the physician, the nurse and the call specialist. The procedure was verified in the procedure room. - Pre-procedure physical examination revealed no contraindications to sedation. - ASA Grade Assessment: III - A patient with severe systemic disease. - After reviewing the risks and benefits, the patient was deemed in satisfactory condition to undergo the procedure. - The anesthesia plan was to use general anesthesia. - Immediately prior to administration of medications, the patient was re-assessed for adequacy to receive sedatives. - The heart rate, respiratory rate, oxygen saturations, blood pressure, adequacy of pulmonary ventilation, and response to care were monitored throughout the procedure. - The physical status of the patient was re-assessed after the procedure. After obtaining informed consent, the endoscope was passed under direct vision. Throughout the procedure, the patient's blood pressure, pulse, and oxygen saturations were monitored continuously. The Endosonoscope was introduced through the mouth, and advanced to the second part of duodenum. The upper EUS was accomplished without difficulty. The patient tolerated the procedure well. Findings: ENDOSONOGRAPHIC FINDING: : There was no sign of significant endosonographic abnormality in the ampulla. No pathologic lymphadenopathy and no masses were identified. One stent was visualized endosonographically in the common bile duct. Extension of the stent was noted in the lower third of the main bile duct. Multiple stones were visualized endosonographically in the gallbladder. They were hyperechoic and characterized by shadowing. There was no sign of significant endosonographic abnormality in the entire pancreas. No masses. Impression: - There was no sign of significant pathology in the ampulla. - One stent was visualized endosonographically in the common bile duct. - Multiple stones were visualized endosonographically in the gallbladder. - There was no sign of significant pathology in the entire pancreas. - No specimens collected. Recommendation: - Perform an ERCP today. Teresa Mendez D.O. Teresa Mendez, 07/23/2022 9:42:25 AM This report has been signed electronically. Note Initiated On: 07/23/2022 8:22 AM Number of Addenda: 0 I attest to the content of the Intraoperative Record and orders documented therein, exceptions below {[id number]}
[2022-07-23] MEDS ORDERED: SUGAMMADEX SODIUM 200 MG/2 ML VIAL IV ONE (09:46)
--- NOTE | 2022-07-23 09:52 | GI REPORT ---
Patient Name: Pamella Morales Procedure Date: 07/23/2022 8:21 AM Date of : 1950 Admit Type: Inpatient Age: 72 Gender: Female Attending MD: Teresa Mendez DO, Procedure: ERCP Providers: Teresa Mendez DO Referring MD: Cole Hill Do, John E. Piatt Indications: Abdominal pain of suspected biliary origin, For therapy of bile duct stone(s) Medicines: General Anesthesia Complications: No immediate complications. Estimated blood loss: Minimal. Estimated Blood Loss: Estimated blood loss was minimal. Procedure: Pre-Anesthesia Assessment: - Prior to the procedure, a History and Physical was performed, and patient medications, allergies and sensitivities were reviewed. The patient's tolerance of previous anesthesia was reviewed. - The risks and benefits of the procedure and the sedation options and risks were discussed with the patient. All questions were answered and informed consent was obtained. - Patient identification and proposed procedure were verified prior to the procedure by the physician, the nurse and the sport intern. The procedure was verified in the procedure room. - Pre-procedure physical examination revealed no contraindications to sedation. - ASA Grade Assessment: III - A patient with severe systemic disease. - After reviewing the risks and benefits, the patient was deemed in satisfactory condition to undergo the procedure. - The anesthesia plan was to use general anesthesia. - Immediately prior to administration of medications, the patient was re-assessed for adequacy to receive sedatives. - The heart rate, respiratory rate, oxygen saturations, blood pressure, adequacy of pulmonary ventilation, and response to care were monitored throughout the procedure. - The physical status of the patient was re-assessed after the procedure. After obtaining informed consent, the scope was passed under direct vision. Throughout the procedure, the patient's blood pressure, pulse, and oxygen saturations were monitored continuously. The Duodenoscope was introduced through the mouth, and advanced to the duodenum and used to inject contrast into the bile duct. The ERCP was accomplished without difficulty. The patient tolerated the procedure well. Findings: The byproducts supervisor film was normal. The esophagus was successfully intubated under direct vision without detailed examination of the pharynx, larynx, and associated structures, and upper GI tract. The upper GI tract was grossly normal. The major papilla was small. The bile duct was deeply cannulated with the short-nosed traction sphincterotome and guidewire. Contrast was injected. I personally interpreted the bile duct images. Contrast extended to the hepatic ducts. The lower third of the main bile duct contained filling defect(s) thought to be a stone. The biliary orifice was stenotic. This appeared benign. Biliary sphincterotomy was made with a monofilament CleverCut distal wire sphincterotome using ERBE electrocautery. The sphincterotomy oozed blood. To discover objects, the biliary tree was swept with an 11.5 mm balloon starting at the bifurcation. One stone was removed. No stones remained. One 10 Fr by 7 cm biliary stent with a single external flap and a single internal flap was placed 7 cm into the common bile duct. Bile flowed through the stent. The stent was in good position. Following the ERCP endoscope we noted active bleeding at the gastroesophageal junction. A standard esophagogastroduodenoscopy scope was used for the examination of the upper gastrointestinal tract. The scope was passed under direct vision through the upper GI tract. Red blood was found at the gastroesophageal junction. A bleeding Dottie-Berry tear was found, likely from passage of the EUS endoscope. The area was unsuccessfully injected with 4 mL of a 1:10,000 solution of epinephrine through the esophagogastroduodenoscope for hemostasis followed by three hemostatic clips (MR conditional). Clip manager pipeline: [employer]. Due to persistent bleeding with Hemospray which resulted in cessation of bleeding from the Dottie-Berry tear. The upper endoscope was then withdrawn. Impression: - The major papilla appeared to be small. - Biliary papillary stenosis, benign. - Dottie-Berry tear with active bleeding from passage of the EUS endoscope. Treated with clip placement, epinephrine injection and Hemospray. - Choledocholithiasis was found. Complete removal was accomplished by biliary sphincterotomy and balloon extraction. - One biliary stent was placed into the common bile duct. Recommendation: - Avoid aspirin and nonsteroidal anti-inflammatory medicines for 1 week. - Use Protonix (pantoprazole) 40 mg PO BID for 4 weeks. - Use sucralfate suspension 1 gram PO QID for 10 days. - Repeat ERCP in 6 weeks to remove stent. Teresa Mendez D.O. Teresa Mendez, 07/23/2022 9:52:09 AM This report has been signed electronically. Note Initiated On: 07/23/2022 8:21 AM Number of Addenda: 0 I attest to the content of the Intraoperative Record and orders documented therein, exceptions below {[id number]}
[2022-07-23] MEDS ORDERED: hydrALAZINE HCL 20 MG/ML VIAL ONE (10:08)
--- NOTE | 2022-07-23 10:59 | Fluoroscopy Report ---
[place] ERCP biliary ductal CLINICAL HISTORY: EXPLORE DUCTS COMPARISON STUDY: CT of the abdomen and pelvis and MRCP July 21, 2022. FLUOROSCOPY TIME: 32 seconds. EXPOSURE DOSE: 11.42 mGy FLUOROSCOPIC IMAGES: 3 FINDINGS: Fluoroscopy was provided during ERCP. Common bile duct was cannulated with suspected balloo n sweep through the common bile duct. Common bile duct stent was placed. Intrahepatic bile ducts are partially opacified. Opacified bile ducts are normal in caliber. Suspected defect within the gallblad holland are noted. IMPRESSION: Fluoroscopy provided during ERCP with placement of a common bile duct stent. ACT 112: Negative or not required by law. Electronically signed by: Dann Castaneda M.D. 07/23/2022 10:57 AM
--- NOTE | 2022-07-23 11:02 | Post Operative Brief Note ---
PG Immediate Post Op with CF Date of Surgery July 23, 2022 Pre & Post Diagnosis Operation Date: 07/23/22 08:15 Pre-Op Diagnosis: Gallstone pancreatitis Post-Op Diagnosis: Gallstone pancreatitis, intra-abdominal adhesions I identified the patient and participated in the time-out.: Yes Procedure Operation Date: 07/23/22 08:15 Actual Procedures s Laparoscopic Cholecystectomy Laparoscopic lysis of Adhesions(Not Applicable) - Cole Hill DO Surgeon Cole Hill DO Religious Educator Michelle Martínez PA-C Estimated Blood Loss 30 Findings See Below Adhesions to the anterior abdominal wall in the midline at her previous surgical scar Specimens Specimen Description: Gallbladder to pathology Anesthesia Type General Complications none Disposition Disposition: Recovery Room
--- NOTE | 2022-07-23 11:07 | Operative Report ---
PG Post Operative Report Pre & Post Diagnosis Operation Date: 07/23/22 08:15 Pre-Op Diagnosis: Gallstone pancreatitis Post-Op Diagnosis: Gallstone pancreatitis, intra-abdominal adhesions I identified the patient and participated in the time-out.: Yes Procedure Operation Date: 07/23/22 08:15 Actual Procedures s Laparoscopic Cholecystectomy Laparoscopic lysis of Adhesions(Not Applicable) - Cole Hill DO Surgeon Cole Hill DO Preparation Supervisor Michelle Martínez PA-C Estimated Blood Loss 30 Findings See Below Adhesions to the anterior abdominal wall in the midline with previous surgical scar Fluids see anesthesia record Specimens Gallbladder to pathology Drains None Anesthesia Type General Complications none Disposition Disposition: Recovery Room Indications 72-year-old female with gallstone pancreatitis status post ERCP Description of Procedure Patient was already present in the operating room under general anesthesia after having undergone an EUS and ERCP with GI. She was given appropriate pre- operative antibiotics. Her abdomen prepped and draped in the usual sterile fashion. A timeout was called, the procedure was verified as Laparoscopic cholecystectomy, possible open, possible intra-operative cholangiogram. Surgical, nursing and anesthesia teams agreed and the procedure was begun. After injection of 0.25% Marcaine with epinephrine, a left upper quadrant incision was made and the abdominal wall was then elevated with towel clamps and abdomen entered using the Veress needle confirming position using the saline drop test. Pneumoperitoneum was established. 5mm trocar was placed. Laparoscope was introduced. No injury from entry into the abdomen was visualized after inspection of the abdomen. Her colon and stomach were dilated and there were adhesions to the midline and left lower quadrant from her previous sigmoidectomy. We were able to see that the right upper quadrant and right lower quadrant were free of adhesions. At this time to 5 mm ports were placed in the right abdomen to prepare for laparoscopic lysis of adhesions. At this time the midline adhesions were lysed using scissors cautery to make room for placement of our other trocars in order to perform the cholecystectomy. Once the midline was freed of adhesions, an 11 mm subxiphoid port was placed under direct visualization and another 5 mm supraumbilical port was placed under direct visualization. At this time the camera was transferred to the 5 mm supraumbilical port. At this time the abdomen was inspected and the gallbladder identified. The gallbladder fundus was grasped and retracted cephalad. The gallbladder infundibulum was then grasped and retracted laterally. The cystic duct and cystic artery were then identified and skeletonized. The critical view of safety was obtained. They were both then clipped twice proximally and once distally and then divided using scissors. The gallbladder was then taken off of the liver bed using electrocautery and placed in an endocatch bag and removed from the subxiphoid port. The liver bed was then inspected and no bile leak or bleeding was evident. The subxiphoid port was then closed using 0-Vicryl using the suture passer. The trocars were then removed under direct visualization and no bleeding was present. Abdomen was desufflated. The skin was then closed using 4-0 Monocryl in a subcuticular fashion. Surgical glue was applied. Needle and sponge counts were correct x 2. At this time the patient was awoken from anesthesia and extubated having remained stable throughout the entire case. The patient was then transported to PACU in stable condition. The physician special event assistant was present scrubbed for entire case. She was essential in positioning, prepping and draping the patient, retraction exposure, driving the laparoscope, closure of the incisions and placement of the dressings. I attest to the content of the Intraoperative Record and any orders documented therein. Any exceptions are noted below.
[2022-07-23] MEDS ORDERED: PROMETHAZINE HCL INJ 25 MG/ML 1 ML VIAL ONE (11:28)
[2022-07-23] MEDS ORDERED: SODIUM CHLORIDE 0.9% 50 ML BAG ONE (11:28)
--- NOTE | 2022-07-23 12:07 | Anesthesiology Progress Note ---
Date of Service July 23, 2022 Anesthesia Post Procedure Vital Signs Vital Signs: Temp Pulse Pulse Resp BP BP Pulse Ox 07/23/22 11:55 88 13 152/63 H 97 07/23/22 11:45 88 16 157/69 H 99 07/23/22 11:35 87 17 160/66 H 99 07/23/22 11:25 94 H 18 163/68 H 99 07/23/22 11:18 36.3 C L 92 H 15 152/66 H 98 07/23/22 07:47 36.8 C 80 18 158/73 H 95 07/23/22 07:33 36.9 C 83 18 153/73 H 93 07/23/22 03:25 18 07/22/22 23:20 17 07/22/22 22:10 37.2 C 78 16 151/78 H 94 07/22/22 14:42 36.8 C 71 16 144/78 H 94 O2 Del Method O2 Flow Rate FiO2 07/23/22 11:55 Oxymask 2 07/23/22 11:45 Oxymask 4 07/23/22 11:35 Oxymask 6 07/23/22 11:25 Oxymask 6 07/23/22 11:18 Oxymask 8 07/23/22 07:47 Room Air 07/23/22 07:33 Room Air 07/23/22 03:25 21 07/22/22 23:20 21 07/22/22 22:10 Room Air 07/22/22 14:42 Room Air Pain Intensity Upper Abdomen: Pain Intensity: 2 Transfer of Care Handoff Completed per policy Notes Mental Status: alert / awake / arousable Patient Amnestic to Procedure: Yes Nausea / Vomiting: adequately controlled Pain: adequately controlled Airway Patency, RR, SpO2: stable & adequate BP & HR: stable & adequate Hydration State: stable & adequate Anesthetic Complications: no major complications apparent
[2022-07-23] MEDS ORDERED: MoRPHine SULFATE 2 MG/ML CARP IV PRN (12:43)
[2022-07-23] MEDS ORDERED: oxyCODONE HCL IR 5 MG TAB (IMMEDIATE RELEASE) PO PRN (12:43)
[2022-07-23] MEDS ORDERED: Nursing to Pharmacy Communication SCH (13:15)
[2022-07-23] MEDS: LACTATED RINGER'S 1,000 ML IV SCH ×2 (13:26→18:10)
[2022-07-23] MEDS: cefTRIAXone SODIUM 2,000 MG in DEXTROSE 5% 50 ML IV SCH (13:32)
[2022-07-23] MEDS ORDERED: SUCRALFATE 1 GM TAB PO SCH (14:10)
[2022-07-23] MEDS ORDERED: ACETAMINOPHEN 1,000 MG/100 ML VIAL IV STA (14:11)
[2022-07-23 14:32] LABS: BUN Creatinine Ratio 21.4 (10-20); Calcium 9.6 mg/dl (8.5-10.1); Creatinine Clr Calc Pharmacy 70.2 ml/min; Est GFR (African American) 99.6 ml/min; Potassium 3.3 mmol/L (3.5-5.1)
[2022-07-23] MEDS: PANTOprazole 40 MG in SYRINGE 0 ML IV SCH ×2 (14:44→20:10)
--- NOTE | 2022-07-23 14:52 | Hospitalist Progress Note ---
Date of Service July 23, 2022 Assessment & Plan (1) Pancreatitis: (2) Cholelithiasis: (3) Elevated LFTs: Plan: This is a 72-year-old female with PMH DM type II, dyslipidemia, BAILEE on CPAP, HTN, history of diverticulitis s/p colectomy who presented to ED on 07/21/22 2/2 epigastric abd pain that radiated to back. Acute Pancreatitis, likely gall stone induced Cholelithiasis Transaminitis Admit to [facility] CT ABD/pelvis showing signs of acute pancreatitis and cholelithiasis without acute cholecystitis. Given cholelithiasis on CT ABD/pelvis, suspicious for gallstone pancreatitis MRCP: LFTS on 07/23 AST 200, ALT 326, Total Bili 3.0 and Lipase 3,695; repeat pending for today Chol/Trig panel WNL Appreciate GI/General surgery consults ERCP/EUS: " Ultrasound from the distal common bile duct, performed a biliary sternotomy and placed stent. Upon withdrawal of the ERCP scope gastric tract thus a regular upper endoscope was reinserted. This revealed a tear at the GE junction consistent with a Dottie-Swenson tear likely from passage of the endoscopic ultrasound endoscope. This required treatment with epinephrine injection, clip placement and ultimately use of Hemospray resulting in cessation of bleeding" Per Dr. Mendez S/P Lap Lydia with lysis of adhesions by DR. Hill POD #0 Continue IVF Placed on clear liquid diet Avoid ASA/NSADS x 1 week Dottie Swenson Tear 2/2 withdrawal of ERCP scope at GE junction underwent epi inj, clip placement and hemospray PPI BID for 4 weeks (will give first two doses as IV due to pt more somnolent) Carafate QID x 10 days follow H/H (4) Hypokalemia: Plan: replete with IV KCL 10meq x 2 follow bmp (5) HTN (hypertension): Plan: BP remains mildly elevated, likely secondary to pain Continue home losartan, hold indapamide PRN hydralazine monitor closely (6) DM type 2 (diabetes mellitus, type 2): Plan: Hgb A1c 5.4 on 07/22/22 Hold metformin and utilize NovoLog correction factor only while hospitalized (7) Acute UTI: Plan: UA on admission concerning for infection she is asymptomatic; however culture growing > 100K e.coli, sensitive except to quinolones Continue Rocephin Day #2 can transition to oral once tolerating PO intake (8) BAILEE on CPAP: Plan: CPAP as per home settings DVT PROPHYLAXIS SCDs - in setting of dottie swenson tear Dispo: med/surg, FULL CODE PCP: Dr. Woodard Pt was seen and examined in collaboration with Dr. Clark, please see addendum A total of 45minutes were spent with greater than 50% of that time face to face with the patient, personally reviewing all current laboratories, imaging studies, past medication reconciliation, outpatient chart review, and discussion with specialists to collaborate care for the patient with attending. Please see attending documentation for corrections and/or additions. Admission and Anticipated Discharge Date Admission Date: July 21, 2022 Supervising Physician Co-Signing Physician Notes Patient seen and examined at bedside as a follow-up of acute pancreatitis, likely gallstone induced, cholelithiasis, transaminitis, UTI. Her admitting labs and imagings were reviewed [address] abdomen pelvis and MRCP which were suggestive of cholelithiasis without acute cholecystitis and pancreatitis. Patient's clinical symptoms of abdominal pain is improving. Lab coronado her lipase is now downtrending (yesterday mistakenly charted downtrending). GI evaluated, EUS and ERCP 07/23 c/b MW tear (treated w/ clip/epinephrine/hemospray). Choledocholithiasis removal by biliary sphincterotomy and balloon extraction done . Avoid aspirin/nsaids/caustic meds like PO KCL and doxy for a week. Rocephin 2/ for UTI, follow final urine culture results. Continue with other home medications as able. Gen sx evaled, s/p lap lydia 2/7. protonix bid x 4 weeks and sucralfate for 10 days per gi. repeat ercp in 6 wks. On examination: Patient on room air, abd soft w/ clean dressing over access ports, heart and lung examination WNL, rest of the examination is as above. I have seen and examined the patient and have discussed the case with the provider above. I agree with the assessment and plan as stated. Subjective Patient was seen and examined in room 379-2. Follow-up ERCP and laparoscopic cholecystectomy with takedown of adhesions. She is sitting up in bed. Currently complains of 6 out of 10 epigastric pain and indigestion. Is overall drowsy. Denies fever, chills, sweats, lightheadedness, dizziness, chest pain, shortness of breath & vomiting. She is nauseated. Patient underwent ERCP today with noted choledocholithiasis, sweeping of stones and biliary stent placement. She subsequently suffered a Dottie-Swenson tear with active bleeding treated with clip on epinephrine and Hemospray. She last underwent laparoscopic cholecystectomy with takedown of adhesions by Dr. Hill. She has returned to medical wards. Review of Systems Review of Systems: All systems reviewed & are unremarkable except as noted in HPI & below Physical Exam Physical Exam: Gen: WD/WN, NAD, A&O x3, drowsy HEENT: Normocephalic, atraumatic, conjunctivae moist, sclerae anicteric, mucous membranes moist. Lung: Clear to Auscultation bilaterally, no wheezes/rales/rhonchi Heart: Regular rate, regular rhythm, no murmurs, rubs, or gallops Abdomen: Soft, NT, ND hypoactive bowel sounds, dressing CDI Extremities: No edema Skin: Warm, no rash, negative turgor. Results & Data Results & Data ([facility]) Vital Signs (Past 12 Hours) Vital Signs Temp Pulse Pulse Resp BP BP Pulse Ox 07/23/22 14:28 37.2 C 83 16 168/76 H 97 07/23/22 13:44 36.8 C 92 H 147/71 H 95 07/23/22 13:17 83 H 156/75 H 96 07/23/22 12:05 36.6 C 89 18 153/61 H 97 07/23/22 11:55 88 13 152/63 H 97 07/23/22 11:45 88 16 157/69 H 99 07/23/22 11:35 87 17 160/66 H 99 07/23/22 11:25 94 H 18 163/68 H 99 07/23/22 11:18 36.3 C L 92 H 15 152/66 H 98 07/23/22 07:47 36.8 C 80 18 158/73 H 95 07/23/22 07:33 36.9 C 83 18 153/73 H 93 07/23/22 03:25 18 O2 Del Method O2 Flow Rate FiO2 07/23/22 14:28 Nasal Cannula 2 07/23/22 13:44 Nasal Cannula 2 07/23/22 13:17 Nasal Cannula 2 07/23/22 12:05 Nasal Cannula 2 07/23/22 11:55 Oxymask 2 07/23/22 11:45 Oxymask 4 07/23/22 11:35 Oxymask 6 07/23/22 11:25 Oxymask 6 07/23/22 11:18 Oxymask 8 07/23/22 07:47 Room Air 07/23/22 07:33 Room Air 07/23/22 03:25 21 Laboratory Results [facility] 07/23/22 13:49 Sodium 139 Potassium 3.3 L Chloride 100 Carbon Dioxide 26 BUN 15 Creatinine 0.70 Glucose 173 H Calcium 9.6 (1) Pancreatitis Acute pancreatitis complication: unspecified Chronicity: acute Pancreatitis type: unspecified pancreatitis type Qualified Code(s): K85.90 - Acute pancreatitis without necrosis or infection, unspecified (2) Cholelithiasis Cholelithiasis location: other site
[2022-07-23 15:10] LABS: Albumin Globulin Ratio 1.4 (0.9-2); Albumin Level 4.3 gm/dl (3.4-5.0); Bilirubin,Total 1.2 mg/dl (0.2-1.0); Total Protein 7.3 gm/dl (6.0-8.3)
[2022-07-23] MEDS: POTASSIUM CHLORIDE / WTR 10 MEQ/100 ML PLCT IV SCH ×2 (15:54→18:10)
[2022-07-23] MEDS ORDERED: SUCRALFATE 1 GM/10 ML UDC PO SCH (17:00)
[2022-07-23] MEDS: ONDANSETRON INJ 2 MG/ML 2 ML VIAL IV PRN (18:12)
[2022-07-23] MEDS: LOSARTAN POTASSIUM 50 MG TAB PO SCH (20:11)
[2022-07-23] MEDS: SUCRALFATE 1 GM/10 ML UDC PO SCH (20:11)
[2022-07-23] MEDS: MoRPHine SULFATE 4 MG/ML 1 ML CARP\\VIAL IV PRN (20:15)
[2022-07-24] MEDS: MoRPHine SULFATE 4 MG/ML 1 ML CARP\\VIAL IV PRN ×4 (01:23→19:54)
[2022-07-24] MEDS ORDERED: Nursing to Pharmacy Communication SCH (04:30)
[2022-07-24] MEDS: LACTATED RINGER'S 1,000 ML IV SCH (05:55)
[2022-07-24] MEDS: ONDANSETRON INJ 2 MG/ML 2 ML VIAL IV PRN (07:19)
--- NOTE | 2022-07-24 07:49 | Surgery Progress Note ---
Date of Service July 24, 2022 Assessment & Plan (1) Cholelithiasis: Plan: POD#1 ERCP with GI and lap gordy with Dr. Hill WBC 11.8. LFTs downtrending Vitals are stable Having some epigastric discomfort and some nausea, on clears for now. as symptoms improve no contraindication for diet advancement from our standpoint if okay with GI Can take down surgical dressings tomorrow. Will have steri's on underneath F/u with Dr. Hill in clinic within 2 weeks (2) Pancreatitis: Admission and Anticipated Discharge Date Admission Date: July 21, 2022 Supervising Physician Co-Signing Physician Notes I personally saw and evaluated the patient with Michelle Martínez PA-C and agree with the assessment and plan. 72-year-old female with gallstone pancreatitis, status post laparoscopic cholecystectomy She is recovering well from ERCP and surgery yesterday She is tolerating her clear liquids with minimal nausea, will advance to full liquids Her LFTs are trending down her pain seems to be improving with regards to her pancreatitis She continues to do well we will advance her diet and she will tentatively be ready for discharge the patient tomorrow Subjective Patient reports some nausea and pain in the upper abdomen this AM. Otherwise feeling okay and the medications are managing it. She is tolerating small amounts of clears. Physical Exam Physical Exam: awake/alert,no distress Gastrointestinal (Abdomen): Inspection/Auscultation: + abdominal surgical incision (c/d/i, some shadowing of r lateral incision) Results & Data ([facility]) Vital Signs (Past 12 Hours) Vital Signs Temp Pulse Pulse Pulse Resp BP Pulse Ox 07/24/22 07:42 36.8 C 74 24 110/60 91 07/24/22 03:09 71 14 93 07/24/22 02:31 36.6 C 68 18 136/73 94 07/23/22 22:34 78 21 92 07/23/22 21:19 37.0 C 69 17 144/75 H 92 O2 Del Method FiO2 07/24/22 07:42 Room Air 07/24/22 03:09 21 07/24/22 02:31 Nasal CPAP 07/23/22 22:34 21 07/23/22 21:19 Room Air PG Care Time/CCT Total # of Minutes Spent Total Time Spent with Patient: Total time spent is greater than 50% in coordination of care (as documented) at patient's floor/unit and/or counseling patient: Coding Level of Care Code None Diagnoses Cholelithiasis K80.20 Cholelithiasis location: other site Pancreatitis K85.90 Acute pancreatitis complication: unspecified Chronicity: acute Pancreatitis type: unspecified pancreatitis type (1) Pancreatitis Acute pancreatitis complication: unspecified Chronicity: acute Pancreatitis type: unspecified pancreatitis type Qualified Code(s): K85.90 - Acute pancreatitis without necrosis or infection, unspecified (2) Cholelithiasis Cholelithiasis location: other site
[2022-07-24 08:03] LABS: Basophils # (auto) 0.01 K/uL (0-0.2); Basophils % (auto) 0.1 %; Eosinophils # (auto) 0.02 K/uL (0-0.50); Eosinophils % (auto) 0.2 %; Hematocrit (blood only) 34.5 % (37.0-47.0); Hemoglobin 12.5 g/dl (12.0-16.0); Immature Granulocytes # (auto) 0.08 K/uL (0.01-0.20); Immature Granulocytes % (auto) 0.7 %; Lymphocytes # (auto) 0.96 K/uL (1.2-3.4); Lymphocytes % (auto) 8.1 %; Mean Corpuscular Hgb Conc 36.2 g/dL (32.0-36.0); Mean Corpuscular Volume 85.6 fL (80.0-100.0); Mean Platelet Volume 11.5 fL (9.4-12.4); Monocytes # (auto) 1.01 K/uL (0.11-0.59); Monocytes % (auto) 8.6 %; Neutrophils # (auto) 9.72 K/uL (1.40-6.50); Neutrophils % (auto) 82.3 %; Platelet Count 145 K/uL (130-400); RDW Coefficient of Variation 13.8 % (11.5-14.5); RDW Standard Deviation 43.4 fL (36.4-46.3); Red Blood Count 4.03 M/uL (4.20-5.40)
[2022-07-24 08:23] LABS: Albumin Globulin Ratio 1.5 (0.9-2); Albumin Level 3.7 gm/dl (3.4-5.0); BUN Creatinine Ratio 26.4 (10-20); Bilirubin,Total 0.9 mg/dl (0.2-1.0); Creatinine Clr Calc Pharmacy 68.3 ml/min; Est GFR (African American) 96.3 ml/min; Est GFR (Non-African American) 83.1 ml/min; Globulin 2.5 gm/dl (2.5-4.0); Potassium 3.3 mmol/L (3.5-5.1); Total Protein 6.2 gm/dl (6.0-8.3)
[2022-07-24] MEDS: cefTRIAXone SODIUM 2,000 MG in DEXTROSE 5% 50 ML IV SCH (08:47)
[2022-07-24] MEDS: PANTOprazole 40 MG TAB PO SCH ×2 (09:04→19:59)
[2022-07-24] MEDS: SUCRALFATE 1 GM/10 ML UDC PO SCH ×4 (09:05→19:59)
[2022-07-24] MEDS: INSULIN ASPART PER UNIT SC SCH ×2 (09:18→12:31)
[2022-07-24] MEDS: oxyCODONE HCL IR 5 MG TAB (IMMEDIATE RELEASE) PO PRN ×3 (09:43→21:55)
[2022-07-24] MEDS: POTASSIUM CHLORIDE / WTR 10 MEQ/100 ML PLCT IV SCH ×2 (11:46→12:46)
--- NOTE | 2022-07-24 12:01 | Gastroenterology Progress Note ---
Date of Service July 24, 2022 Assessment & Plan (1) Elevated LFTs: (2) Cholelithiasis: (3) Pancreatitis: (4) Epigastric abdominal pain: Plan This is a 72-year-old female who presents with acute on chronic epigastric pain which began about a month ago and worsened prior to arrival; found to have elevated LFTs, elevated bilirubin, and lipase, CT suggestive of pancreatitis and mild biliary dilation; concerning for choledocholithiasis, gallstone pancreatitis. She underwent ERCP yesterday as above, w/ CBD stone removed and stent placed, had Dottie-Jluis tear tx w/ epi and clipped and tx w/ hemospray, followed by cholecystectomy. Today having some abd discomfort and nausea but tolerating her liquid diet. Labs are stable today; LFTs trending down. No melena, hematochezia, hematemesis. Abd soft, mild generalized TTP. - Diet as tolerated per surgery/primary teams; recommend low fat for several weeks - Continue broad-spectrum ABX - Daily LFTs - Avoid ASA and NSAIDs for 1 week - Use Protonix 40 mg BID x 4 weeks - Use sucralfate suspension 1 gm PO QID x 10 days - Would avoid ETOH, hepatotoxins - Repeat ERCP in approx 6 weeks for stent removal, our office will arrange Thank you for allowing us to participate in the care of this patient. Please call with any acute changes, questions or concerns. Please see addendum below with additional recommendation from my supervising physician. Admission and Anticipated Discharge Date Admission Date: July 21, 2022 Supervising Physician Co-Signing Physician Notes I saw and evaluated the patient. She seems to be recovering well from her ERCP and cholecystectomy yesterday. From our perspective he may advance her diet as tolerated finally - complete a 10 day course of antibiotic coverage - Avoid ASA and NSAIDs for 1 week - Use Protonix 40 mg BID x 4 weeks - Use sucralfate suspension 1 gm PO QID x 10 days - Repeat ERCP in approx 6 weeks for stent removal - GI to Sign off Subjective Patient seen and examined, chart reviewed. Overnight pt has done well; this AM having some abd discomfort, nausea, but tolerating her liquid diet. No BMs, but is passing flatus. No melena, hematochezia, hematemesis, vomiting,fever, chills, CP, SOB. Review of Systems Review of Systems: All systems reviewed & are unremarkable except as noted in HPI & below Physical Exam Constitutional: well developed, well nourished and comfortable; no acute distress Neck: trachea midline Respiratory: normal respiratory effort, lungs clear to auscultation Cardiovascular: RRR, no murmur, no edema Gastrointestinal (Abdomen): Inspection/Auscultation: abdomen normal to inspection and normal bowel sounds mild TTP generalized, no rebound, guarding, abd soft. Surgical incisions covered with gauze. Skin: no rashes, warm and dry Results & Data ([facility]) Vital Signs (Past 12 Hours) Vital Signs Temp Pulse Pulse Pulse Resp BP BP 07/24/22 08:41 16 07/24/22 07:42 36.8 C 74 24 110/60 07/24/22 03:09 71 14 07/24/22 02:31 36.6 C 68 18 136/73 Pulse Ox O2 Del Method FiO2 07/24/22 08:41 96 Room Air 07/24/22 07:42 91 Room Air 07/24/22 03:09 93 21 07/24/22 02:31 94 Nasal CPAP Laboratory Results 07/24/22 07/24/22 07/24/22 Range/Units 08:19 07:26 07:26 WBC (4.8-10.8) K/ul RBC (4.20-5.40) M/uL Hgb (12.0-16.0) g/dl Hct (37.0-47.0) % MCV (80.0-100.0) fL MCH (25.0-34.0) pg MCHC (32.0-36.0) g/dL RDW Std Deviation (36.4-46.3) fL RDW Coeff of Francine (11.5-14.5) % Plt Count (130-400) K/uL MPV (9.4-12.4) fL Immature Gran % (Auto) % Neut % (Auto) % Lymph % (Auto) % Laurel % (Auto) % Eos % (Auto) % Baso % (Auto) % Neut # (Auto) (1.40-6.50) K/uL Lymph # (Auto) (1.2-3.4) K/uL Laurel # (Auto) (0.11-0.59) K/uL Eos # (Auto) (0-0.50) K/uL Baso # (Auto) (0-0.2) K/uL Immature Gran # (Auto) (0.01-0.20) K/uL Sodium 139 (136-145) mmol/L Potassium 3.3 L (3.5-5.1) mmol/L Chloride 104 (98-107) mmol/L Carbon Dioxide 30 (21-32) mmol/L Anion Gap 5 (3-11) BUN 19 (6-23) mg/dl Creatinine 0.72 (0.6-1.2) mg/dl Est Cr Clr Drug Dosing 68.3 ml/min Est GFR ( Amer) 96.3 ml/min Est GFR (Non-Af Amer) 83.1 ml/min BUN/Creatinine Ratio 26.4 H (10-20) Glucose 120 H (70-99(Fasting)) mg/dl POC Glucose 111 H (70-99) mg/dl Calcium 9.0 (8.5-10.1) mg/dl Total Bilirubin 0.9 (0.2-1.0) mg/dl AST 45 H (13-39) U/L ALT 141 H (7-52) U/L Alkaline Phosphatase 89 (34-104) U/L Total Protein 6.2 (6.0-8.3) gm/dl Albumin 3.7 (3.4-5.0) gm/dl Globulin 2.5 (2.5-4.0) gm/dl Albumin/Globulin Ratio 1.5 (0.9-2) Lipase Cancelled Pending (11-82) U/L 07/24/22 07/23/22 07/23/22 Range/Units 07:26 20:31 17:04 WBC 11.80 H (4.8-10.8) K/ul RBC 4.03 L (4.20-5.40) M/uL Hgb 12.5 (12.0-16.0) g/dl Hct 34.5 L (37.0-47.0) % MCV 85.6 (80.0-100.0) fL MCH 31.0 (25.0-34.0) pg MCHC 36.2 H (32.0-36.0) g/dL RDW Std Deviation 43.4 (36.4-46.3) fL RDW Coeff of Francine 13.8 (11.5-14.5) % Plt Count 145 (130-400) K/uL MPV 11.5 (9.4-12.4) fL Immature Gran % (Auto) 0.7 % Neut % (Auto) 82.3 % Lymph % (Auto) 8.1 % Laurel % (Auto) 8.6 % Eos % (Auto) 0.2 % Baso % (Auto) 0.1 % Neut # (Auto) 9.72 H (1.40-6.50) K/uL Lymph # (Auto) 0.96 L (1.2-3.4) K/uL Laurel # (Auto) 1.01 H (0.11-0.59) K/uL Eos # (Auto) 0.02 (0-0.50) K/uL Baso # (Auto) 0.01 (0-0.2) K/uL Immature Gran # (Auto) 0.08 (0.01-0.20) K/uL Sodium (136-145) mmol/L Potassium (3.5-5.1) mmol/L Chloride (98-107) mmol/L Carbon Dioxide (21-32) mmol/L Anion Gap (3-11) BUN (6-23) mg/dl Creatinine (0.6-1.2) mg/dl Est Cr Clr Drug Dosing ml/min Est GFR ( Amer) ml/min Est GFR (Non-Af Amer) ml/min BUN/Creatinine Ratio (10-20) Glucose (70-99(Fasting)) mg/dl POC Glucose 188 H 186 H (70-99) mg/dl Calcium (8.5-10.1) mg/dl Total Bilirubin (0.2-1.0) mg/dl AST (13-39) U/L ALT (7-52) U/L Alkaline Phosphatase (34-104) U/L Total Protein (6.0-8.3) gm/dl Albumin (3.4-5.0) gm/dl Globulin (2.5-4.0) gm/dl Albumin/Globulin Ratio (0.9-2) Lipase (11-82) U/L 07/23/22 07/23/22 Range/Units 13:49 13:18 WBC (4.8-10.8) K/ul RBC (4.20-5.40) M/uL Hgb (12.0-16.0) g/dl Hct (37.0-47.0) % MCV (80.0-100.0) fL MCH (25.0-34.0) pg MCHC (32.0-36.0) g/dL RDW Std Deviation (36.4-46.3) fL RDW Coeff of Francine (11.5-14.5) % Plt Count (130-400) K/uL MPV (9.4-12.4) fL Immature Gran % (Auto) % Neut % (Auto) % Lymph % (Auto) % Laurel % (Auto) % Eos % (Auto) % Baso % (Auto) % Neut # (Auto) (1.40-6.50) K/uL Lymph # (Auto) (1.2-3.4) K/uL Laurel # (Auto) (0.11-0.59) K/uL Eos # (Auto) (0-0.50) K/uL Baso # (Auto) (0-0.2) K/uL Immature Gran # (Auto) (0.01-0.20) K/uL Sodium 139 (136-145) mmol/L Potassium 3.3 L (3.5-5.1) mmol/L Chloride 100 (98-107) mmol/L Carbon Dioxide 26 (21-32) mmol/L Anion Gap 13 H (3-11) BUN 15 (6-23) mg/dl Creatinine 0.70 (0.6-1.2) mg/dl Est Cr Clr Drug Dosing 70.2 ml/min Est GFR ( Amer) 99.6 ml/min Est GFR (Non-Af Amer) 86.0 ml/min BUN/Creatinine Ratio 21.4 H (10-20) Glucose 173 H (70-99(Fasting)) mg/dl POC Glucose 166 H (70-99) mg/dl Calcium 9.6 (8.5-10.1) mg/dl Total Bilirubin 1.2 H D (0.2-1.0) mg/dl AST 59 H (13-39) U/L ALT 203 H (7-52) U/L Alkaline Phosphatase 117 H (34-104) U/L Total Protein 7.3 (6.0-8.3) gm/dl Albumin 4.3 (3.4-5.0) gm/dl Globulin 3.0 (2.5-4.0) gm/dl Albumin/Globulin Ratio 1.4 (0.9-2) Lipase 2670 H (11-82) U/L Diagnostic Findings ERCP 07/23/22: Impression: - The major papilla appeared to be small. - Biliary papillary stenosis, benign. - Dottie-Berry tear with active bleeding from passage of the EUS endoscope. Treated with clip placement, epinephrine injection and Hemospray. - Choledocholithiasis was found. Complete removal was accomplished by biliary sphincterotomy and balloon extraction. - One biliary stent was placed into the common bile duct. Recommendation: - Avoid aspirin and nonsteroidal anti-inflammatory medicines for 1 week. - Use Protonix (pantoprazole) 40 mg PO BID for 4 weeks. - Use sucralfate suspension 1 gram PO QID for 10 days. - Repeat ERCP in 6 weeks to remove stent. Teresa Mendez D.O. (1) Pancreatitis Acute pancreatitis complication: unspecified Chronicity: acute Pancreatitis type: unspecified pancreatitis type Qualified Code(s): K85.90 - Acute pancreatitis without necrosis or infection, unspecified (2) Cholelithiasis Cholelithiasis location: other site
--- NOTE | 2022-07-24 12:24 | Hospitalist Progress Note ---
Date of Service July 24, 2022 Assessment & Plan (1) Pancreatitis: (2) Cholelithiasis: (3) Elevated LFTs: Plan: This is a 72-year-old female with PMH DM type II, dyslipidemia, BAILEE on CPAP, HTN, history of diverticulitis s/p colectomy who presented to ED on 07/21/22 2/2 epigastric abd pain that radiated to back. Acute Pancreatitis, likely gall stone induced Cholelithiasis Transaminitis Admit to [facility] CT ABD/pelvis showing signs of acute pancreatitis and cholelithiasis without acute cholecystitis. Given cholelithiasis on CT ABD/pelvis, suspicious for gallstone pancreatitis MRCP: LFTS on 07/23 AST 200, ALT 326, Total Bili 3.0 and Lipase 3,695; repeat pending for today Chol/Trig panel WNL Appreciate GI/General surgery consults ERCP/EUS: " Ultrasound from the distal common bile duct, performed a biliary sternotomy and placed stent. Upon withdrawal of the ERCP scope gastric tract thus a regular upper endoscope was reinserted. This revealed a tear at the GE junction consistent with a Dottie-Swenson tear likely from passage of the endoscopic ultrasound endoscope. This required treatment with epinephrine injection, clip placement and ultimately use of Hemospray resulting in cessation of bleeding" Per Dr. Mendez S/P Lap Lydia with lysis of adhesions by DR. Hill POD #1 Continue IVF Placed on clear liquid diet, will advance as tolerated, pt with nausea and abd pain this a.m.; will re eval in afternoon Avoid ASA/NSADS x 1 week, avoid hepatotoxins continue to trend LFTS, Lipase Dottie Swenson Tear 2/2 withdrawal of ERCP scope at GE junction underwent epi inj, clip placement and hemospray PPI BID for 4 weeks (will give first two doses as IV due to pt more somnolent) Carafate slurry QID x 10 days follow H/H - stable today at 12.5/34.5 (4) Hypokalemia: Plan: replete with IV KCL 10meq x 2 follow bmp (5) HTN (hypertension): Plan: BP improving Continue home losartan, hold indapamide PRN hydralazine - has not had a dose thus far monitor closely (6) DM type 2 (diabetes mellitus, type 2): Plan: Hgb A1c 5.4 on 07/22/22 Has not required novolog so will D/C, change accuchecks to prn (7) Acute UTI: Plan: UA on admission concerning for infection she is asymptomatic; however culture growing > 100K e.coli, sensitive except to quinolones Continue Rocephin Day #3 can transition to oral once tolerating PO intake (8) BAILEE on CPAP: Plan: CPAP as per home settings DVT PROPHYLAXIS SCDs - in setting of dottie swenson tear Dispo: med/surg, FULL CODE PCP: Dr. Woodard Pt was seen and examined in collaboration with Dr. Clark, please see addendum A total of 45minutes were spent with greater than 50% of that time face to face with the patient, personally reviewing all current laboratories, imaging studies, past medication reconciliation, outpatient chart review, and discussion with specialists to collaborate care for the patient with attending. Please see attending documentation for corrections and/or additions. Admission and Anticipated Discharge Date Admission Date: July 21, 2022 Supervising Physician Co-Signing Physician Notes Patient seen and examined at bedside as a follow-up of acute pancreatitis, likely gallstone induced, cholelithiasis, transaminitis, UTI. Her admitting labs and imagings were reviewed 07/[address] abdomen pelvis and MRCP which were suggestive of cholelithiasis without acute cholecystitis and pancreatitis. GI evaluated, EUS and ERCP 07/23 c/b MW tear (treated w/ clip/epinephrine/hemospray). Choledocholithiasis removal by biliary sphincterotomy and balloon extraction done . Avoid aspirin/nsaids/caustic meds like PO KCL and doxy for a week. c/w ppi and carafate. repeat ercp in 6 weeks Rocephin 2 for UTI, follow final urine culture results. Continue with other home medications as able. Gen sx evaled, s/p lap lydia 07/23. Pt tolerating diet, no bm, moving gas, belly pain improving. Likely dc janneth if tolerating diet well. On examination: Patient on room air, abd soft w/ clean dressing over access ports, heart and lung examination WNL, rest of the examination is as above. I have seen and examined the patient and have discussed the case with the provider above. I agree with the assessment and plan as stated. Subjective Patient was seen and examined in room 379-2. Follow-up ERCP and laparoscopic cholecystectomy with takedown of adhesions. She is sitting at bedside eating clear liquid breakfast. She complains of overall nausea and epigastric abdominal pain radiating to her back. Pain was 8 out of 10 but has since subsided with analgesia. She denies any vomiting, fever, chills, sweats, lightheaded, dizzy, chest pain, shortness of breath, cough. She is passing flatus but no bowel movement since admission. Review of Systems Review of Systems: All systems reviewed & are unremarkable except as noted in HPI & below Physical Exam Physical Exam: Gen: WD/WN, NAD, A&O x3, sitting at bedside HEENT: Normocephalic, atraumatic, conjunctivae moist, sclerae anicteric, mucous membranes moist. Lung: Clear to Auscultation bilaterally, no wheezes/rales/rhonchi Heart: Regular rate, regular rhythm, no murmurs, rubs, or gallops Abdomen: Soft, tender to palpation in epigastrium, no rebound, no guarding, ND hypoactive bowel sounds, dressing CDI Extremities: No edema Skin: Warm, no rash, negative turgor. Results & Data Results & Data ([facility]) Vital Signs (Past 12 Hours) Vital Signs Temp Pulse Pulse Pulse Resp BP BP 07/24/22 08:41 16 07/24/22 07:42 36.8 C 74 24 110/60 07/24/22 03:09 71 14 07/24/22 02:31 36.6 C 68 18 136/73 Pulse Ox O2 Del Method FiO2 07/24/22 08:41 96 Room Air 07/24/22 07:42 91 Room Air 07/24/22 03:09 93 21 07/24/22 02:31 94 Nasal CPAP Laboratory Results Short CBC 07/24/22 Range/Units 07:26 WBC 11.80 H (4.8-10.8) K/ul Hgb 12.5 (12.0-16.0) g/dl Hct 34.5 L (37.0-47.0) % Plt Count 145 (130-400) K/uL BMP 07/23/22 07/24/22 13:49 07:26 Sodium 139 139 Potassium 3.3 L 3.3 L Chloride 100 104 Carbon Dioxide 26 30 BUN 15 19 Creatinine 0.70 0.72 Glucose 173 H 120 H Calcium 9.6 9.0 Liver Function 07/23/22 07/24/22 Range/Units 13:49 07:26 Total Bilirubin 1.2 H D 0.9 (0.2-1.0) mg/dl AST 59 H 45 H (13-39) U/L ALT 203 H 141 H (7-52) U/L Alkaline Phosphatase 117 H 89 (34-104) U/L Albumin 4.3 3.7 (3.4-5.0) gm/dl Medications Administered Current Inpatient Medications Acetaminophen (Acetaminophen 325 Mg Tab) 650 mg PO Q4H PRN PRN Reason: pain/fever Stop: 08/20/22 21:14 Dextrose (Dextrose 50% 50 Ml Syringe) 25 - 50 ml IV UD PRN; Protocol PRN Reason: Hypoglycemia Protocol Stop: 08/20/22 21:14 Glucagon (Glucagon For Inj 1 Mg Vial) 1 mg SQ UD PRN; Protocol PRN Reason: Hypoglycemia Protocol Stop: 08/20/22 21:14 Glucose (Glucose 40% Gel 15 Gm Tube) 15 - 30 gm PO UD PRN; Protocol PRN Reason: Hypoglycemia Protocol Stop: 08/20/22 21:14 Glucose (Glucose 10 Tab/Tube) 4 - 8 tab PO UD PRN; Protocol PRN Reason: Hypoglycemia Treatment Stop: 08/20/22 21:14 Hydralazine HCl (Hydralazine Hcl 20 Mg/Ml Vial) 10 mg IV Q6H PRN PRN Reason: HTN Stop: 08/20/22 21:14 Lactated Ringer's (Lr) 1,000 mls @ 100 mls/hr IV .Q10H ALBERTO Stop: 08/20/22 21:14 Last Admin: 07/24/22 05:55 Dose: 100 mls/hr Ceftriaxone Sodium 2,000 mg/ (Dextrose) 70 mls @ 100 mls/hr IV Q24H ALBERTO; Protocol Stop: 08/01/22 08:59 Last Infusion: 07/24/22 09:35 Dose: Infused Potassium Chloride (K Yuniel / Wtr) 10 meq in 100 mls @ 100 mls/hr IV Q1H ALBERTO Stop: 07/24/22 12:44 Last Admin: 07/24/22 11:46 Dose: 100 mls/hr Insulin Aspart (Insulin Aspart Per Unit) 0 units SC ACHS ALBERTO Stop: 08/21/22 00:00 Last Admin: 07/24/22 09:18 Dose: Not Given Losartan Potassium (Losartan Potassium 50 Mg Tab) 100 mg PO HS ALBERTO Stop: 08/20/22 21:14 Last Admin: 07/23/22 20:11 Dose: 100 mg Miscellaneous (Carbohydrates For Hypoglycemia ) 15 - 30 gm PO UD PRN PRN Reason: Hypoglycemia Protocol Stop: 08/20/22 21:14 Morphine Sulfate (Morphine Sulfate 2 Mg/Ml Carp) 2 mg IV Q2H PRN PRN Reason: Moderate Pain Stop: 08/06/22 12:42 Morphine Sulfate (Morphine Sulfate 4 Mg/Ml 1 Ml Carp\\Vial) 4 mg IV Q2H PRN PRN Reason: Severe Pain Stop: 08/06/22 12:42 Last Admin: 07/24/22 08:47 Dose: 4 mg Ondansetron HCl (Ondansetron Inj 2 Mg/Ml 2 Ml Vial) 4 mg IV Q6H PRN PRN Reason: Nausea Stop: 08/20/22 21:14 Last Admin: 07/24/22 07:19 Dose: 4 mg Oxycodone HCl (Oxycodone Hcl Ir 5 Mg Tab (Immediate Release)) 5 mg PO Q4H PRN PRN Reason: Moderate Pain Stop: 08/06/22 12:42 Last Admin: 07/23/22 17:45 Dose: 5 mg Oxycodone HCl (Oxycodone Hcl Ir 5 Mg Tab (Immediate Release)) 10 mg PO Q4H PRN PRN Reason: Severe Pain Stop: 08/06/22 12:42 Last Admin: 07/24/22 09:43 Dose: 10 mg Pantoprazole Sodium (Pantoprazole 40 Mg Tab) 40 mg PO BID ALBERTO Stop: 08/23/22 08:59 Last Admin: 07/24/22 09:04 Dose: 40 mg Sucralfate (Sucralfate 1 Gm/10 Ml Udc) 1 gm PO QID ALBERTO Stop: 08/22/22 20:59 Last Admin: 07/24/22 09:05 Dose: 1 gm (1) Pancreatitis Acute pancreatitis complication: unspecified Chronicity: acute Pancreatitis type: unspecified pancreatitis type Qualified Code(s): K85.90 - Acute pancreatitis without necrosis or infection, unspecified (2) Cholelithiasis Cholelithiasis location: other site
[2022-07-24] MEDS: LOSARTAN POTASSIUM 50 MG TAB PO SCH (19:59)
[2022-07-25 08:32] LABS: Albumin Globulin Ratio 1.2 (0.9-2); Albumin Level 3.4 gm/dl (3.4-5.0); BUN Creatinine Ratio 24.2 (10-20); Bilirubin,Total 0.9 mg/dl (0.2-1.0); Calcium 8.3 mg/dl (8.5-10.1); Creatinine Clr Calc Pharmacy 79.3 ml/min; Est GFR (African American) 103.7 ml/min; Est GFR (Non-African American) 89.5 ml/min; Globulin 2.9 gm/dl (2.5-4.0); Magnesium 1.8 mg/dl (1.7-2.4); Potassium 3.3 mmol/L (3.5-5.1); Total Protein 6.3 gm/dl (6.0-8.3)
--- NOTE | 2022-07-25 08:44 | Surgery Progress Note ---
Date of Service July 25, 2022 Assessment & Plan (1) Cholelithiasis: Plan: POD#2 ERCP with GI, Lap gordy with Dr. griggs Labs are pending. low grade temp 38.2 this AM on abx per GI will advance diet as tolerates. pain and nausea improved Can take down surgical dressings today. Will have steri's on underneath F/u with Dr. Griggs in clinic within 2 weeks (2) Pancreatitis: Admission and Anticipated Discharge Date Admission Date: July 21, 2022 Supervising Physician Co-Signing Physician Notes I personally saw and evaluated the patient with Michelle Martínez PA-C and agree with the assessment and plan. 72-year-old female with gallstone pancreatitis, status post laparoscopic cholecystectomy Nausea and abdominal pain improved She tolerating a regular diet Her labs have basically normalized She can be discharged from surgical standpoint with follow-up me in 2 weeks Surgery will sign off at this time, please call with any questions or concerns Subjective Patient feeling better each day. Pain controlled. No further nausea. Tolerating full liquids. Physical Exam Physical Exam: awake/alert, no distress Gastrointestinal (Abdomen): Percussion/Palpation: + abdomen tender (expected raymundo incisional discomfor to palpation) and abdomen soft Results & Data ([facility]) Vital Signs (Past 12 Hours) Vital Signs Temp Pulse Pulse Resp BP Pulse Ox O2 Del Method 07/25/22 07:32 38.2 C H 90 126/57 L 92 Room Air 07/25/22 02:30 14 93 07/24/22 22:40 85 21 93 07/24/22 22:40 37.1 C 85 18 125/74 93 Room Air FiO2 07/25/22 07:32 07/25/22 02:30 21 07/24/22 22:40 21 07/24/22 22:40 PG Care Time/CCT Total # of Minutes Spent Total Time Spent with Patient: Total time spent is greater than 50% in coordination of care (as documented) at patient's floor/unit and/or counseling patient: Coding Level of Care Code None Diagnoses Cholelithiasis K80.20 Cholelithiasis location: other site Pancreatitis K85.90 Acute pancreatitis complication: unspecified Chronicity: acute Pancreatitis type: unspecified pancreatitis type (1) Pancreatitis Acute pancreatitis complication: unspecified Chronicity: acute Pancreatitis type: unspecified pancreatitis type Qualified Code(s): K85.90 - Acute pancreatitis without necrosis or infection, unspecified (2) Cholelithiasis Cholelithiasis location: other site
[2022-07-25 09:00] LABS: Basophils # (auto) 0.03 K/uL (0-0.2); Basophils % (auto) 0.4 %; Eosinophils # (auto) 0.14 K/uL (0-0.50); Eosinophils % (auto) 1.7 %; Hematocrit (blood only) 32.9 % (37.0-47.0); Hemoglobin 11.7 g/dl (12.0-16.0); Immature Granulocytes # (auto) 0.05 K/uL (0.01-0.20); Immature Granulocytes % (auto) 0.6 %; Lymphocytes # (auto) 1.13 K/uL (1.2-3.4); Lymphocytes % (auto) 13.8 %; Mean Corpuscular Hemoglobin 31.1 pg (25.0-34.0); Mean Corpuscular Hgb Conc 35.6 g/dL (32.0-36.0); Mean Corpuscular Volume 87.5 fL (80.0-100.0); Mean Platelet Volume 11.2 fL (9.4-12.4); Monocytes # (auto) 0.68 K/uL (0.11-0.59); Monocytes % (auto) 8.3 %; Neutrophils # (auto) 6.17 K/uL (1.40-6.50); Neutrophils % (auto) 75.2 %; Platelet Count 125 K/uL (130-400); RDW Coefficient of Variation 13.9 % (11.5-14.5); RDW Standard Deviation 44.1 fL (36.4-46.3); Red Blood Count 3.76 M/uL (4.20-5.40)
[2022-07-25] MEDS: PANTOprazole 40 MG TAB PO SCH (09:12)
[2022-07-25] MEDS: SUCRALFATE 1 GM/10 ML UDC PO SCH ×2 (09:12→12:44)
[2022-07-25] MEDS: cefTRIAXone SODIUM 2,000 MG in DEXTROSE 5% 50 ML IV SCH (10:19)
[2022-07-25] MEDS ORDERED: POTASSIUM CHLORIDE CRTAB 20 MEQ TABCR PO STA (10:41)
[2022-07-25] MEDS: POTASSIUM CHLORIDE / WTR 10 MEQ/100 ML PLCT IV SCH ×2 (12:44→13:50)
--- NOTE | 2022-07-25 16:01 | Discharge Summary ---
Discharge Summary Date of Service July 25, 2022 Notes For Next Care Provider Acute pancreatitis likely secondary to gallstones, presence of cholelithiasis, transaminitis S/p ERCP/EUS with biliary stent placed. F/u with GI in 6 weeks for stent removal. Removal of ERCP scope resulted in tear at GE junction consistent with Dottie- Berry tear. Continue PPI, carafate slurry as below with repeat H/H at PCP follow up. S/P Lap Lydia with lysis of adhesions. Continue soft diet for 1-2 weeks before resuming normal consistency. Will treat for E. coli UTI for 7 days total Medication Changes From Visit Protonix 40mg BID x 4 weeks Carafate slurry QID x 10 days Augmentin BID x 3 more days KCl supplementation 20meq until repeat BMP Holding aspirin and ibuprofen x 1 week, holding indapamide until seen by PCP Admission HPI Per Admitting Provider 72-year-old female with PMH DM type II, dyslipidemia, BAILEE on CPAP, HTN, history of diverticulitis s/p colectomy, and other problems listed below who presents to the ED for evaluation of epigastric discomfort. Patient reports increased feelings of indigestion over the past month and a half. Symptoms do not seem to be made worse with particular foods or food in general. Patient has been taking Tums on a daily basis. Today, she reports she developed discomfort into her back which prompted ED evaluation. Patient reports some nausea in the ED today however has had no other nausea or vomiting. Denies diarrhea or change in bowel habits. No fevers or chills. Denies urinary symptoms. In the ED, patient is found to have transaminitis with elevated lipase. CT ABD/pelvis shows acute pancreatitis, cholelithiasis without CT evidence of acute cholecystitis. Patient was given IV Zofran, IVF. Admission Exam Per Admitting Provider Constitutional: WD/WN, vitals as above Eyes: PERRL, conjunctivae normal, anicteric sclerae ENMT: external ear and nose normal, oropharynx normal Respiratory: normal respiratory effort, lungs clear to auscultation Cardiovascular: Rate/Rhythm: regular rate and regular rhythm Vessels: normal peripheral pulses Extremities: no edema Gastrointestinal (Abdomen): Inspection/Auscultation: normal bowel sounds; abdomen not distended Percussion/Palpation: + abdomen tender (Epigastric) and abdomen soft; no hepatosplenomegaly Musculoskeletal: no cyanosis or clubbing, extremities motor strength 5/5 Skin: no rashes, warm and dry Neurologic: PERRL, EOMI, accommodation nl, no face palsy, no dysarthria Psychiatric: A+Ox3, euthymic affect Principal Dx & Hospital Course #1 = Principal Diagnosis (1) Pancreatitis: (2) Cholelithiasis: (3) Elevated LFTs: (4) Hypokalemia: (5) HTN (hypertension): (6) DM type 2 (diabetes mellitus, type 2): (7) Acute UTI: (8) BAILEE on CPAP: Plan This is a 72-year-old female with PMH DM type II, dyslipidemia, BAILEE on CPAP, HTN, history of diverticulitis s/p colectomy, and other problems listed below who presents to the ED for evaluation of epigastric discomfort and was found to have acute pancreatitis likely secondary to gallstone pancreatitis and UTI. CT ABD/pelvis showing signs of acute pancreatitis and cholelithiasis without acute cholecystitis. Given cholelithiasis on CT ABD/pelvis as well as transaminitis, suspicious for gallstone pancreatitis underwent EUS/ERCP. Biliary sternotomy and stent placed. Withdrawal of ERCP scope revealed a tear at the GE junction consistent with a Dottie-Berry tear likely from passage of the endoscopic ultrasound endoscope. This required treatment with epinephrine injection, clip placement and ultimately use of hemospray resulting in cessation of bleeding per Dr. Mendez's op note. Patient is to avoid ASA/NSAIDs for 1 week, avoid hepatotoxins. Continue Protonix twice daily for 1 month and Carafate slurry QID x 10 days. Follow H/H with repeat CBC at PCP appointment. Follow up with GI for repeat ERCP in 6 weeks for stent removal. S/P Lap Lydia with lysis of adhesions by DR. Hill POD #1. Continue soft diet for 1-2 weeks before resuming normal consistency. Low fat recommended. Potassium supplement to be continued for 1 week before BMP follow-up. Directed to take potassium supplement sitting up and with plenty water due to Dottie-Berry tear. Recommended to hold indapamide until PCP follow-up with BMP check due to lyte abnormalities. Treated for E. coli UTI during admission; will complete 7-day antibiotic course with Augmentin upon discharge. Patient comfortable and hemodynamically stable at time of discharge. Understands need for follow-up with PCP, GI and general surgery. Discharge Exam Gen: WD/WN, NAD, sitting in bed, A&Ox3 HEENT: Normocephalic, atraumatic, conjunctivae moist, sclerae anicteric, mucous membranes moist Lung: Clear to Auscultation bilaterally, no wheezes/rales/rhonchi Heart: Regular rate, regular rhythm, no murmurs, rubs, or gallops Abdomen: Soft, tender to palpation in epigastrium, no rebound, no guarding, laparoscopic dressings c/d/i Extremities: no edema Skin: Warm, no rash Updated Medication List Medication Instructions Recorded Confirmed Type albuterol sulfate 90 mcg/actuation 2 inh inhalation Q6H PRN Shortness 07/21/22 07/21/22 History aerosol inhaler Of Breath cholecalciferol (vitamin D3) 50 50 mcg PO DAILY 07/21/22 07/21/22 History mcg (2,000 unit) capsule (Vitamin D3) coQ10 (ubiquinol) 200 mg capsule 200 mg PO DAILY 07/21/22 07/21/22 History glucosamine sulf dipot 1 cap PO DAILY 07/21/22 07/21/22 History chlr,msm,chond 550 mg-C 30 mg-greta 1 mg capsule (Glucosamine Chondroitin) levocetirizine 5 mg tablet (Xyzal) 5 mg PO PM 07/21/22 07/21/22 History losartan 100 mg tablet 100 mg PO HS 07/21/22 07/21/22 History metformin 750 mg tablet,extended 1,500 mg PO DAILY 07/21/22 07/21/22 History release 24 hr pravastatin 20 mg tablet 20 mg PO DAILY 07/21/22 07/21/22 History turmeric root extract 500 mg tablet 500 mg PO DAILY 07/21/22 07/21/22 History amoxicillin 875 mg-potassium 1 tab PO BID #6 tabs 07/25/22 Rx clavulanate 125 mg tablet lactobacillus combination no.4 3 3,000 mmu cells PO DAILY #7 caps 07/25/22 Rx billion cell capsule (Probiotic) oxycodone 5 mg tablet 5 mg PO Q8H PRN severe pain (scale 07/25/22 Rx score 7-10) #8 tabs pantoprazole 40 mg tablet,delayed 40 mg PO BID #56 tabs 07/25/22 Rx release potassium chloride 20 mEq 20 meq PO DAILY #7 tabs 07/25/22 Rx tablet,extended release sucralfate 100 mg/mL oral 1 g (10 mL) PO QID #360 mL 07/25/22 Rx suspension Hospital Stay Data Consultations 07/21/22 17:59 ED Decision to Admit Stat 07/21/22 21:15 Consult Gastroenterology Routine Consult General Surgery Routine Procedures Performed Operation Date: 07/23/22 08:15 Actual Procedures s Esophagogastroduodenoscopy(Not Applicable) - Teresa Mendez DO s Endoscopic Ultrasonography Upper(Not Applicable) - Teresa Mendez DO p Endoscopic Retrograde Cholangiopancreato(Not Applicable) - Teresa Mendez DO s Laparoscopic Cholecystectomy with Lysis of Adhesions(Not Applicable) - Cole Hill DO Operation Date: 07/23/22 11:15 <No data on this case meets the specified criteria> Diagnostic Imagining Performed 07/21/22 16:19 CT abd pelvis IV con only Stat 07/21/22 18:53 MR MRCP Urgent 07/23/22 06:45 US upper EUS PACS images Routine 07/23/22 08:15 FL ERCP biliary ductal Routine Pending Results Patient Have Any Pending Studies at Discharge: Yes Discharge Instructions Given to Patient (Per Discharging Provider) You were admitted to the hospital for acute pancreatitis, likely caused by gallstones as well as urinary tract infection. ERCP/EUS was performed and biliary stent was placed. Gall bladder was removed laparoscopically. MEDICATION CHANGES: 1. Continue Protonix 40mg twice daily x 4 weeks 2. Continue Carafate slurry four times a day x 10 days total 3. Complete course of antibiotic (Augmentin) for UTI 4. Take probiotic daily with meal x 1 week for gut health 5. Continue potassium supplementation daily x 1 week (please sit upright when taking and drink plenty of water) 6. Oxycodone is prescribed as needed for severe pain Please stop taking aspirin and ibuprofen for 1 week. Hold Indapamide until seen by primary care provider. RECOMMENDATIONS FOR FOLLOW-UP: * Continue soft diet for 1-2 weeks and slowly transition back to normal consistency. Recommend low fat diet. * Follow up with PCP as above labwork performed beforehand (CBC and BMP). * Call to follow up with Dr. Hill in general surgery clinic in 2 weeks. * Per GI service - avoid alcohol. Repeat ERCP in approx 6 weeks for stent removal. GI office will call to arrange for follow up. OTHER INSTRUCTIONS: Seek medical attention if you have: * temperature above 101 * chest pain or trouble breathing * abdominal pain, nausea, vomiting * diarrhea, dark stools or bloody stools * any unanswered questions or concerns Call 911 if symptoms are severe. Please take good care of yourself. Call if you have any questions or problems. You can reach a [facility] hospitalist on duty at [facility] 24 hours a day by calling [phone]. Total Time Total Time Spent Total Time Spent (In Minutes): 80 Supervising Physician Co-Signing Physician Notes Patient seen and examined at bedside as a follow-up of acute pancreatitis, likely gallstone induced, cholelithiasis, transaminitis, UTI. Her admitting labs and imagings were reviewed 07/[address] abdomen pelvis and MRCP which were suggestive of cholelithiasis without acute cholecystitis and pancreatitis. GI evaluated, EUS and ERCP 07/23 c/b MW tear (treated w/ clip/epinephrine/hemospray). Choledocholithiasis removal by biliary sphincterotomy and balloon extraction done . Avoid aspirin/nsaids/caustic meds like PO KCL and doxy for a week.If needed KCL PO, take w/ plenty of water and don't lie down for half an hour. c/w ppi and carafate. repeat ercp in 6 weeks. f/u pcp, gi and gen sx on dc. Rocephin 07/22 for UTI, on Augmentin on dc Gen sx evaled, s/p lap lydia 07/23. Pt tolerating diet, moving bowel, c/w low fat soft diet, belly pain improving. lipase and wbc wnl, procal negative, brief febrile episode in AM, likely post op fever, pt doing good through the day and no further fever or complaints, pt would like to go home. On examination: Patient on room air, abd soft w/ clean dressing over access ports, heart and lung examination WNL, rest of the examination is as above. I have seen and examined the patient and have discussed the case with the provider above. I agree with the assessment and plan as stated.
== END 2022-07-25 18:36 | disposition home or self-care (01) | DRG 417 ==
LOC: ED 15:56 → 3N 19:05 → SUATTDRO 19:05 → 3N 21:04